=== PATIENT | female | born 1945 | race African-American/Black ===

== ENCOUNTER 2018-05-27 10:20 | Inpatient (IN) | payer MEDICARE ==
--- NOTE | 2018-05-27 10:52 | ER Document Report ---
ED Medical Screen (RME) - General Chief Complaint: General Weakness Stated Complaint: BODY WEAKNESS Time Seen by Provider: 05/27/18 10:45 Notes: RAPID MEDICAL EVALUATION DISCLOSURE I have seen this patient as part of a Rapid Medical Evaluation and, if applicable, placed any initially appropriate orders. The patient will be seen and fully evaluated, including a full history and physical exam, by a provider ( in Main ED or Fast Track) when a room becomes available. 72-year-old female brought here by family who states she has been acting tired and dehydrated over the past few days. She is also had some diarrhea over the past few days. She has a history of diabetes and they report she has been drinking a lot of Pepsi. She has a history of this similar presentation and they stated that she normally perks up after getting some IV fluids. EXAM Slightly somnolent CTAB RRR TRAVEL OUTSIDE OF THE [place] IN LAST 30 DAYS: No - Related Data Allergies/Adverse Reactions: No Known Allergies Allergy (Unverified 08/07/11 13:04) Past Medical History - Past Medical History Cardiac Medical History: Reports: Hx Hypertension Denies: Hx Heart Attack Pulmonary Medical History: Denies: Hx Asthma Neurological Medical History: Denies: Hx Cerebrovascular Accident, Hx Seizures GI Medical History: Denies: Hx Hepatitis, Hx Hiatal Hernia, Hx Ulcer Infectious Medical History: Denies: Hx Hepatitis Past Surgical History: Denies: Hx Mastectomy, Hx Open Heart Surgery, Hx Pacemaker Physical Exam - Vital signs Vitals: Temp Pulse Resp BP Pulse Ox 98.5 F 92 16 119/54 L 97 05/27/18 10:37 05/27/18 10:37 05/27/18 10:37 05/27/18 10:37 05/27/18 10:37 Course - Vital Signs Vital signs: Temp Pulse Resp BP Pulse Ox 98.5 F 92 16 119/54 L 97 05/27/18 10:37 05/27/18 10:37 05/27/18 10:37 05/27/18 10:37 05/27/18 10:37 Doctor's Discharge - Discharge Referrals: ADRIAN BLAKE MD [Primary Care Provider] - Follow up as needed
[2018-05-27 11:44] LABS: HEMATOCRIT 25.1 % (36.0-47.0); MEAN CORPUSCULAR HGB CONC 30.7 g/dL (32.0-36.0); MEAN CORPUSCULAR VOLUME 75 fl (80-97); PLATELET COUNT 179 10^3/uL (150-450); RED BLOOD COUNT 3.34 10^6/uL (3.72-5.28); RED CELL DISTRIBUTION WIDTH 19.8 % (11.5-14.0); WHITE BLOOD COUNT 16.2 10^3/uL (4.0-10.5)
[2018-05-27] MEDS ORDERED: NORMAL SALINE 1000 ML 1,000 ML IV ONE (12:19)
[2018-05-27 12:21] LABS: HEMOGLOBIN 7.7 g/dL (12.0-15.5)
[2018-05-27 12:22] LABS: ALANINE AMINOTRANSFERASE 14 U/L (9-52); ALBUMIN 3.5 g/dL (3.5-5.0); ALKALINE PHOSPHATASE 59 U/L (38-126); ANION GAP 15 (5-19); ASPARTATE AMINO TRANSFERASE 19 U/L (14-36); BILIRUBIN,DIRECT 0.3 mg/dL (0.0-0.4); BILIRUBIN,TOTAL 0.4 mg/dL (0.2-1.3); BLOOD UREA NITROGEN 36 mg/dL (7-20); CALCIUM 10.2 mg/dL (8.4-10.2); CARBON DIOXIDE 13 mmol/L (22-30); CHLORIDE 113 mmol/L (98-107); GLUCOSE 152 mg/dL (75-110); LIPASE 28.2 U/L (23-300); POTASSIUM 5.9 mmol/L (3.6-5.0); SODIUM 140.7 mmol/L (137-145); TOTAL PROTEIN 6.7 g/dL (6.3-8.2)
--- NOTE | 2018-05-27 12:22 | ER Document Report ---
ED General - General Chief Complaint: General Weakness Stated Complaint: BODY WEAKNESS Time Seen by Provider: 05/27/18 10:45 Notes: Patient is brought to the emergency department by her family because they are concerned she is dehydrated. They say that her skin feels dry. She has had diarrhea for the past 2 days. She has been eating and drinking poorly. She is making some urine. Has not been noted to have any fever. She is not nauseated or vomiting. The diarrhea has not had any blood in it. It has soft stools, not watery. She has had shortness of breath with any exertion. No urinary tract symptoms or blood in urine noted. Patient has a history of mild dementia, hypertension, and NIDDM. TRAVEL OUTSIDE OF THE [place] IN LAST 30 DAYS: No - Related Data Allergies/Adverse Reactions: No Known Allergies Allergy (Unverified 05/27/18 15:15) Past Medical History - Social History Smoking Status: Never Smoker Family History: Reviewed & Not Pertinent Patient has suicidal ideation: No Patient has homicidal ideation: No - Past Medical History Cardiac Medical History: Reports: Hx Hypertension Neurological Medical History: Reports: Other - Dementia Endocrine Medical History: Reports: Hx Diabetes Mellitus Type 2 Past Surgical History: Reports: Hx Orthopedic Surgery Review of Systems - Review of Systems Notes: Family provides some information for review of systems. Patient is unable to provide any useful information. REVIEW OF SYSTEMS: CONSTITUTIONAL : Denies fever. EENT: Denies eye, ear, nose or mouth or throat pain or other symptoms. CARDIOVASCULAR: Denies chest pain. RESPIRATORY: Denies cough, chest congestion, but some shortness of breath. GASTROINTESTINAL: Denies abdominal pain or nausea, vomiting, but has diarrhea for the past 2 days. GENITOURINARY: Denies difficulty or painful urinating, urinary frequency, blood in urine. MUSCULOSKELETAL: Denies back or neck pain. Denies joint pain or swelling. SKIN: Denies rash or skin lesions. NEUROLOGICAL: Denies LOC or altered mental status from her normal. Denies headache. Denies sensory loss or motor deficits. ALL OTHER SYSTEMS REVIEWED AND NEGATIVE. -: Yes ROS unobtainable due to patient's medical condition Physical Exam - Vital signs Vitals: Temp Pulse Resp BP Pulse Ox 98.5 F 92 16 119/54 L 97 05/27/18 10:37 05/27/18 10:37 05/27/18 10:37 05/27/18 10:37 05/27/18 10:37 Interpretation: Normal Notes: PHYSICAL EXAMINATION: GENERAL: Well-appearing, in no acute distress. I will signs are all normal. Patient does not answer questions appropriately and seems to be significantly demented. HEAD: Atraumatic, normocephalic. EYES: Pupils equal round and reactive to light, extraocular movements intact. ENT: oropharynx clear without exudates. Moist mucous membranes. NECK: Normal range of motion, supple. LUNGS: Breath sounds clear and equal bilaterally. HEART: Regular rate and rhythm without murmurs. ABDOMEN: Soft, nontender. No guarding or rebound. No masses. BACK: No tenderness throughout entire back. EXTREMITIES: Normal range of motion without pain. NEUROLOGICAL: Normal speech for her. Gait not tested. Normally does not walk without assistance. Normal sensory, motor, and reflex exams grossly. Awake, alert, but not oriented. PSYCH: Normal mood, normal affect. SKIN: Warm, dry, no rashes. Course - Re-evaluation Re-evalutation: 05/27/18 14:22 Patient was started on IV fluids and then a gram of Rocephin IV as her labs returned and apparent UTI, likely sepsis. Spoke with Dr. Howell, patient's primary care provider, and he will admit her for further care. - Vital Signs Vital signs: Temp Pulse Resp BP Pulse Ox 98.2 F 99 16 133/59 H 100 05/27/18 15:46 05/27/18 15:47 05/27/18 15:46 05/27/18 15:46 05/27/18 15:46 - Laboratory Result Diagrams: 05/27/18 11:22 05/27/18 16:24 Laboratory results interpreted by me: 05/27/18 05/27/18 05/27/18 11:21 11:22 11:22 WBC 16.2 H RBC 3.34 L Hgb 7.7 L Hct 25.1 L MCV 75 L MCH 23.0 L MCHC 30.7 L RDW 19.8 H Seg Neuts % (Manual) 86 H Lymphocytes % (Manual) 5 L Abs Neuts (Manual) 14.7 H Potassium 5.9 H Chloride 113 H Carbon Dioxide 13 L BUN 36 H Creatinine 2.30 H Est GFR ( Amer) 25 L Est GFR (Non-Af Amer) 21 L Glucose 152 H POC Glucose 158 H Magnesium 1.3 L Urine Protein Urine Blood Ur Leukocyte Esterase 05/27/18 13:03 WBC RBC Hgb Hct MCV MCH MCHC RDW Seg Neuts % (Manual) Lymphocytes % (Manual) Abs Neuts (Manual) Potassium Chloride Carbon Dioxide BUN Creatinine Est GFR ( Amer) Est GFR (Non-Af Amer) Glucose POC Glucose Magnesium Urine Protein 100 H Urine Blood LARGE H Ur Leukocyte Esterase LARGE H - Diagnostic Test Radiology results interpreted by me: 05/27/18 14:22 Chest x-ray is normal. - EKG Interpretation by Me EKG shows normal: Sinus rhythm Rate: Normal Rhythm: NSR Additional EKG results interpreted by me: 05/27/18 14:23 EKG is normal. Critical Care Note - Critical Care Note Total time excluding time spent on procedures (mins): 40 Discharge - Discharge Clinical Impression: UTI (urinary tract infection), Sepsis, Dehydration, Renal insufficiency Condition: Poor Disposition: ADMITTED INPATIENT Admitting Provider: [facility] Unit Admitted: Telemetry
[2018-05-27 12:23] LABS: ABSOLUTE LYMPHOCYTES# (MANUAL) 0.8 10^3/uL (0.5-4.7); ABSOLUTE MONOCYTES # (MANUAL) 0.6 10^3/uL (0.1-1.4); ABSOLUTE NEUTROPHILS# (MANUAL) 14.7 10^3/uL (1.7-8.2); BAND NEUTROPHILS % (MANUAL) 5 % (3-5); BASOPHILS % (MANUAL) 0 % (0-2); EOSINOPHILS % (MANUAL) 0 % (0-6); LYMPHOCYTES % (MANUAL) 5 % (13-45); MONOCYTES % (MANUAL) 4 % (3-13); SEGMENTED NEUTROPHILS % (MAN) 86 % (42-78); TOTAL CELLS COUNTED 100
[2018-05-27 12:24] LABS: ANISOCYTOSIS 2+; HYPOCHROMASIA SLIGHT; TOXIC VACUOLATION PRESENT
[2018-05-27 12:25] LABS: BURR CELLS 1+; OVALOCYTES 1+; PLATELET COMMENT ADEQUATE; POIKILOCYTOSIS 2+; SCHISTOCYTES 1+; TEAR DROP CELLS SLIGHT
--- NOTE | 2018-05-27 13:02 | RADIOLOGY REPORT (SQ) ---
EXAM DESCRIPTION: CHEST 2 VIEWS COMPLETED DATE/TIME: 05/27/2018 12:48 pm REASON FOR STUDY: Shortness of breath COMPARISON: CT angio chest 07/31/2012 Two-view chest 08/07/2011 EXAM PARAMETERS: NUMBER OF VIEWS: two views TECHNIQUE: Digital Frontal and Lateral radiographic views of the chest acquired. RADIATION DOSE: NA LIMITATIONS: none FINDINGS: LUNGS AND PLEURA: No opacities, masses or pneumothorax. No pleural effusion. MEDIASTINUM AND HILAR STRUCTURES: No masses or contour abnormalities. HEART AND VASCULAR STRUCTURES: Heart normal size. No evidence for failure. BONES: No acute findings. HARDWARE: None in the chest. OTHER: No other significant finding. IMPRESSION: NO ACUTE RADIOGRAPHIC FINDING IN THE CHEST. TECHNICAL DOCUMENTATION: JOB ID: [id number] [employer]- All Rights Reserved Reading location - IP/workstation name: [email or web address]
[2018-05-27 13:33] LABS: AMORPHOUS SEDIMENT,URINE TRACE /HPF; APPEARANCE,URINE TURBID; BILIRUBIN,URINE NEGATIVE (NEGATIVE); COLOR,URINE YELLOW; GLUCOSE, URINE NEGATIVE (NEGATIVE); KETONES,URINE NEGATIVE (NEGATIVE); LEUKOCYTE ESTERASE,URINE LARGE (NEGATIVE); NITRITE,URINE NEGATIVE (NEGATIVE); PROTEIN,URINE 100 mg/dL (NEGATIVE); URINE SPECIFIC GRAVITY 1.015; UROBILINOGEN,URINE NEGATIVE mg/dL (<2.0)
[2018-05-27] MEDS ORDERED: CEFTRIAXONE INJ 1000 MG VIAL IV ONE (14:09)
[2018-05-27] MEDS ORDERED: NORMAL SALINE 1000 ML 1,000 ML IV PRN ×3 (15:23→18:30)
[2018-05-27] MEDS ORDERED: GLUCAGON,HUMAN RECOMB 1 MG INJ IM PRN ×2 (15:26→20:00)
[2018-05-27] MEDS ORDERED: DEXTROSE 40% GEL 15 GM TUBE PO PRN ×4 (15:26→20:00)
[2018-05-27] MEDS ORDERED: DEXTROSE 50%-WATER 25 GM/50 ML DISP.SYRIN IV PRN ×4 (15:26→20:00)
[2018-05-27] MEDS ORDERED: INSULIN LISPRO 100 UNIT/ML 3 ML VIAL SUBCUT PRN (15:26)
[2018-05-27 15:54] LABS: FREE T4 (FREE THYROXINE) 2.07 ng/dL (0.78-2.19)
[2018-05-27 16:07] LABS: THYROID STIMULATING HORMONE 3.72 uIU/mL (0.47-4.68)
[2018-05-27 16:45] LABS: ABSOLUTE RETICS # 0.041 10^6/uL (0.028-0.122); RETICULOCYTE COUNT (AUTO) 1.29 % (0.66-2.85)
[2018-05-27 17:05] LABS: ALANINE AMINOTRANSFERASE 12 U/L (9-52); ALBUMIN 3.3 g/dL (3.5-5.0); ALKALINE PHOSPHATASE 61 U/L (38-126); ANION GAP 18 (5-19); ASPARTATE AMINO TRANSFERASE 19 U/L (14-36); BILIRUBIN,DIRECT 0.2 mg/dL (0.0-0.4); BILIRUBIN,TOTAL 0.2 mg/dL (0.2-1.3); BLOOD UREA NITROGEN 38 mg/dL (7-20); CALCIUM 9.9 mg/dL (8.4-10.2); CARBON DIOXIDE 11 mmol/L (22-30); CHLORIDE 113 mmol/L (98-107); GLUCOSE 129 mg/dL (75-110); POTASSIUM 5.9 mmol/L (3.6-5.0); SODIUM 142.4 mmol/L (137-145); TOTAL PROTEIN 6.8 g/dL (6.3-8.2)
[2018-05-27 18:21] LABS: FOLATE 6.54 ng/mL (>2.76)
[2018-05-27 18:25] LABS: IRON(TIBC) < 10.1 ug/dL (37-170)
[2018-05-27] MEDS ORDERED: DEXTROSE 50%-WATER 25 GM/50 ML DISP.SYRIN IV ONE (19:59)
[2018-05-27] MEDS ORDERED: IRON SUCROSE COMPLEX INJ/PF 100 MG/5 ML SDV IV ONE ×3 (20:02→21:30)
--- NOTE | 2018-05-27 20:09 | RADIOLOGY REPORT (SQ) ---
EXAM DESCRIPTION: U/S RETROPERITON LTD COMPLETED DATE/TIME: 05/27/2018 7:54 pm REASON FOR STUDY: ACUTE KIDNEY INJURY COMPARISON: None. TECHNIQUE: Dynamic and static grayscale images acquired of the kidneys and bladder and recorded on P ACS. Additional selected color Doppler and spectral images recorded. LIMITATIONS: Limited visualization left kidney. Bladder decompressed by Fajardo catheter and therefor e not evaluated. FINDINGS: RIGHT KIDNEY: Normal size. Normal echogenicity. No solid or suspicious masses. No hydronep hrosis. No calcifications. LEFT KIDNEY: Small relative to the right at 7.3 cm. No gross mass or hydronephrosis allowing for li mited visualization. BLADDER: Decompressed by a Fajardo catheter. OTHER FINDINGS: No other significant finding. IMPRESSION: 1. Normal right kidney. 2. Left kidney looks slightly small, suboptimally evaluated. 3 . No hydronephrosis or gross mass. 4. Bladder decompressed by Fajardo catheter. TECHNICAL DOCUMENTATION: JOB ID: [id number] [employer]- All Rights Reserved Reading location - IP/workstation name: [email or web address]
--- NOTE | 2018-05-27 20:14 | PDOC H&P ---
History of Present Illness Admission Date/PCP: 05/27/18 14:38 ADRIAN BLAKE MD History of Present Illness: MILI SUAREZ is a 72 year old female,She was brought to the emergency room by family for evaluation of altered mental status, patient is well-known to me she is extremely noncompliant with office visits, she has type 2 diabetes mellitus, with underlying dementia, arthropathy of both knees the left more than the right, in the emergency room she was evaluated, she was found to be septic, the white blood cell was 16,000 there was associated acute kidney injury with hyperkalemia, severe anemia, iron deficiency type. Patient was referred multiple times for screening colonoscopy but she never kept the appointment, she will need colonoscopy for evaluation of this severe iron deficiency anemia.The source of the sepsis is the urine, the urine is grossly abnormal with precipitation,large junky precipitates. History taking was a challenge, she was altered mental status, stuporous though arousable. Family also stated that she was short of breath most likely from the anemia, the chest x-ray did not show any acute infiltrate to suggest pneumonia.Patient's condition is critical.She will be admitted to a telemetry bed for close monitoring Past Medical History Cardiac Medical History: Reports: Hypertension Neurological Medical History: Reports: Other - Dementia Endocrine Medical History: Reports: Diabetes Mellitus Type 2 Musculoskeltal Medical History: Reports: Arthritis Psychiatric Medical History: Reports: Dementia Past Surgical History Past Surgical History: Reports: Orthopedic Surgery Social History Smoking Status: Never Smoker Frequency of Alcohol Use: None Hx Recreational Drug Use: No Drugs: None Hx Prescription Drug Abuse: No - Advance Directive Resuscitation Status: Full Code Family History Family History: Reviewed & Not Pertinent Parental Family History Reviewed: Yes Children Family History Reviewed: Yes Sibling(s) Family History Reviewed.: Yes Medication/Allergy Home Medications: Carvedilol [Coreg] 25 mg PO BID 09/21/11 Metformin HCl [Glucophage] 1,000 mg PO BID 09/21/11 Donepezil HCl [Aricept] 10 mg PO QHS 05/27/18 Ferrous Sulfate 325 mg PO DAILY 05/27/18 Multivit-Min/Iron/Folic/[id number] [Hair, Skin and Nails Tablet] 1 each PO DAILY Oxycodone HCl 15 mg PO Q4HP PRN 05/27/18 Prevagen 1 tab PO DAILY 05/27/18 Allergies/Adverse Reactions: No Known Allergies Allergy (Unverified 05/27/18 15:15) Review of Systems ROS unobtainable: Due to mental status Physical Exam Vital Signs: Temp Pulse Resp BP Pulse Ox 98.2 F 99 16 133/59 H 100 05/27/18 15:46 05/27/18 15:47 05/27/18 15:46 05/27/18 15:46 05/27/18 15:46 General appearance: PRESENT: other - Elderly female, stuporous Head exam: PRESENT: atraumatic, normocephalic Eye exam: PRESENT: PERRLA Mouth exam: PRESENT: dry mucosa Neck exam: PRESENT: full ROM Respiratory exam: PRESENT: clear to auscultation dionte Cardiovascular exam: PRESENT: RRR, +S1, +S2 Pulses: PRESENT: normal dorsalis pedis pul, +2 pedal pulses bilateral Vascular exam: PRESENT: normal capillary refill GI/Abdominal exam: PRESENT: normal bowel sounds, soft Rectal exam: PRESENT: deferred Neurological exam: PRESENT: altered Skin exam: PRESENT: dry Results Laboratory Results: 05/27/18 16:24 05/27/18 05/27/18 16:24 16:24 Retic Count (auto) 1.29 Absolute Retic 0.041 Sodium 142.4 Potassium 5.9 H Chloride 113 H Carbon Dioxide 11 L Anion Gap 18 BUN 38 H Creatinine 2.21 H Est GFR ( Amer) 26 L Est GFR (Non-Af Amer) 22 L Glucose 129 H Calcium 9.9 Iron < 10.1 L TIBC 301 % Saturation UNABLE TO CALCULATE Ferritin 38.80 Total Bilirubin 0.2 AST 19 ALT 12 Alkaline Phosphatase 61 Total Protein 6.8 Albumin 3.3 L Vitamin B12 578.0 Folate 6.54 Impressions: Chest X-Ray 05/27/18 12:19 IMPRESSION: NO ACUTE RADIOGRAPHIC FINDING IN THE CHEST. Assessment & Plan - Diagnosis (1) Sepsis Qualifiers: Sepsis type: sepsis due to unspecified organism Qualified Code(s): A41.9 - Sepsis, unspecified organism Is this a current diagnosis for this admission?: Yes Plan: Patient met sepsis criteria with multiple organ dysfunction including encephalopathy, acute kidney injury with hyperkalemia, she will be vigorously hydrated with normal saline at 30 min/kg body weight for 24 hours (2) Acute kidney injury Is this a current diagnosis for this admission?: Yes Plan: This is most likely related to sepsis, kidney ultrasound will be requested to rule out post renal etiology. She will be vigorously hydrated to restore kidney function (3) Hyperkalemia Is this a current diagnosis for this admission?: Yes Plan: She has hyperkalemia most likely is secondary to acute kidney failure or intracellular shift, calcium gluconate, 50% dextrose with insulin is administered (4) UTI (urinary tract infection) Qualifiers: Urinary tract infection type: acute cystitis Hematuria presence: without hematuria Qualified Code(s): N30.00 - Acute cystitis without hematuria Is this a current diagnosis for this admission?: Yes
[2018-05-27] MEDS ORDERED: CALCIUM GLUCONATE 1000 MG/10 ML INJ IV ONE (20:30)
[2018-05-27] MEDS: ACETAMINOPHEN 325 MG TABLET PO PRN (20:34)
[2018-05-27] MEDS ORDERED: INSULIN REG, HUMAN 100 UNIT/ML 3 ML VIAL (PYX) IV ONE (21:30)
--- NOTE | 2018-05-27 22:06 | EKG REPORT ---
SEVERITY:- NORMAL ECG - SINUS RHYTHM : Confirmed by: Gaviota Christian 27-May-2018 22:05:18
[2018-05-27] MEDS: HEPARIN SOD (PORCINE) 5,000 UNIT/ML 1 ML SYRINGE SUBCUT SCH (22:17)
[2018-05-27] MEDS: NORMAL SALINE 1000 ML 1,000 ML IV PRN (23:02)
[2018-05-27 23:07] LABS: ALANINE AMINOTRANSFERASE 15 U/L (9-52); ALBUMIN 2.8 g/dL (3.5-5.0); ALKALINE PHOSPHATASE 50 U/L (38-126); ANION GAP 14 (5-19); ASPARTATE AMINO TRANSFERASE 22 U/L (14-36); BILIRUBIN,DIRECT 0.3 mg/dL (0.0-0.4); BILIRUBIN,TOTAL 0.3 mg/dL (0.2-1.3); BLOOD UREA NITROGEN 40 mg/dL (7-20); CALCIUM 9.5 mg/dL (8.4-10.2); CARBON DIOXIDE 11 mmol/L (22-30); CHLORIDE 114 mmol/L (98-107); GLUCOSE 259 mg/dL (75-110); SODIUM 138.6 mmol/L (137-145); TOTAL PROTEIN 5.7 g/dL (6.3-8.2)
[2018-05-27 23:16] LABS: POTASSIUM 4.5 mmol/L (3.6-5.0)
[2018-05-28] MEDS: HEPARIN SOD (PORCINE) 5,000 UNIT/ML 1 ML SYRINGE SUBCUT SCH ×3 (03:03→21:48)
[2018-05-28] MEDS ORDERED: FUROSEMIDE INJ/PF 20 MG/2 ML SDV IV ONE (04:45)
[2018-05-28] MEDS: IPRATROPIUM/ALBUTEROL 0.5-2.5 MG/3 ML AMPUL NEB PRN ×2 (06:39→21:03)
[2018-05-28 07:04] LABS: HEMATOCRIT 21.7 % (36.0-47.0); MEAN CORPUSCULAR HEMOGLOBIN 23.6 pg (27.0-33.4); MEAN CORPUSCULAR HGB CONC 32.2 g/dL (32.0-36.0); MEAN CORPUSCULAR VOLUME 73 fl (80-97); PLATELET COUNT 154 10^3/uL (150-450); RED BLOOD COUNT 2.97 10^6/uL (3.72-5.28); RED CELL DISTRIBUTION WIDTH 19.5 % (11.5-14.0); WHITE BLOOD COUNT 15.5 10^3/uL (4.0-10.5)
[2018-05-28 07:17] LABS: ALANINE AMINOTRANSFERASE 16 U/L (9-52); ALBUMIN 2.9 g/dL (3.5-5.0); ALKALINE PHOSPHATASE 56 U/L (38-126); ANION GAP 16 (5-19); ASPARTATE AMINO TRANSFERASE 21 U/L (14-36); BILIRUBIN,DIRECT 0.3 mg/dL (0.0-0.4); BILIRUBIN,TOTAL 0.3 mg/dL (0.2-1.3); BLOOD UREA NITROGEN 42 mg/dL (7-20); CALCIUM 9.5 mg/dL (8.4-10.2); CARBON DIOXIDE 12 mmol/L (22-30); CHLORIDE 116 mmol/L (98-107); GLUCOSE 101 mg/dL (75-110); SODIUM 143.7 mmol/L (137-145); TRIGLYCERIDES 88 mg/dL (<150)
[2018-05-28 07:32] LABS: DIRECT LDL < 30 mg/dL (<100)
[2018-05-28 08:17] LABS: ABSOLUTE LYMPHOCYTES# (MANUAL) 0.2 10^3/uL (0.5-4.7); ABSOLUTE MONOCYTES # (MANUAL) 0.8 10^3/uL (0.1-1.4); ABSOLUTE NEUTROPHILS# (MANUAL) 14.4 10^3/uL (1.7-8.2); ANISOCYTOSIS 2+; BAND NEUTROPHILS % (MANUAL) 6 % (3-5); BASOPHILS % (MANUAL) 0 % (0-2); BURR CELLS 2+; EOSINOPHILS % (MANUAL) 1 % (0-6); HYPOCHROMASIA 1+; LYMPHOCYTES % (MANUAL) 1 % (13-45); MONOCYTES % (MANUAL) 5 % (3-13); OVALOCYTES SLIGHT; PLATELET COMMENT ADEQUATE; POIKILOCYTOSIS 2+; POLYCHROMASIA SLIGHT; SCHISTOCYTES SLIGHT; SEGMENTED NEUTROPHILS % (MAN) 87 % (42-78); TOTAL CELLS COUNTED 100; TOXIC GRANULATION 1+; TOXIC VACUOLATION PRESENT
[2018-05-28 09:35] LABS: UR PRO/CREAT RATIO RESULT 0.4 mg/mg (0.0-0.2); URINE CREATININE 258.9 mg/dL (15-278); URINE PROTEIN 94.8 mg/dL (<12)
[2018-05-28] MEDS ORDERED: ERTAPENEM SODIUM 1 GM in NORMAL SALINE 50 ML IV SCH (10:00)
[2018-05-28] MEDS ORDERED: CEFTRIAXONE SODIUM 1,000 MG in DEXTROSE 5%-WATER 50 ML IV SCH (10:00)
[2018-05-28] MEDS ORDERED: CEFTRIAXONE 1 GM/D5W RTU 1 GM/50 ML RTUPB IV SCH (10:00)
[2018-05-28] MEDS: ERTAPENEM SODIUM 0.5 GM in NORMAL SALINE 50 ML IV SCH (11:12)
--- NOTE | 2018-05-28 15:06 | PDOC PROGRESS REPORT ---
Subjective Progress Note for:: 05/28/18 Subjective:: Patient was seen by the bedside, she was admitted yesterday when she presented with sepsis, the blood culture, urine culture is growing gram-negative rods. She is more alert today more engaging, last night she developed shortness of breath due to too much volume/fluid the infusion rate was reduced to 70 cc/h and she had a bolus of furosemide intravenously. The antibiotic was changed to ertapenem from Rocephin Reason For Visit: SEPSIS,UTI Physical Exam Vital Signs: Temp Pulse Resp BP Pulse Ox 98.6 F 96 16 131/62 H 98 05/28/18 07:23 05/28/18 08:25 05/28/18 08:25 05/28/18 07:23 05/28/18 07:23 Intake & Output 05/27/18 05/28/18 05/29/18 06:59 06:59 06:59 Intake Total 2400 Output Total 300 Balance 2100 Weight 79.3 kg 79.3 kg General appearance: PRESENT: no acute distress Eye exam: PRESENT: PERRLA Respiratory exam: PRESENT: clear to auscultation dionte Cardiovascular exam: PRESENT: +S1, +S2 GI/Abdominal exam: PRESENT: soft Neurological exam: PRESENT: alert Results Laboratory Results: 05/28/18 05:57 05/28/18 05:57 05/27/18 05/27/18 05/27/18 16:24 16:24 22:50 WBC RBC Hgb Hct MCV MCH MCHC RDW Plt Count Seg Neutrophils % Lymphocytes % Monocytes % Eosinophils % Basophils % Absolute Neutrophils Absolute Lymphocytes Absolute Monocytes Absolute Eosinophils Absolute Basophils Retic Count (auto) 1.29 Absolute Retic 0.041 Sodium 142.4 138.6 Potassium 5.9 H 4.5 D Chloride 113 H 114 H Carbon Dioxide 11 L 11 L Anion Gap 18 14 BUN 38 H 40 H Creatinine 2.21 H 2.23 H Est GFR ( Amer) 26 L 26 L Est GFR (Non-Af Amer) 22 L 21 L Glucose 129 H 259 H Calcium 9.9 9.5 Iron < 10.1 L TIBC 301 % Saturation UNABLE TO CALCULATE Ferritin 38.80 Total Bilirubin 0.2 0.3 AST 19 22 ALT 12 15 Alkaline Phosphatase 61 50 Total Protein 6.8 5.7 L Albumin 3.3 L 2.8 L Triglycerides Cholesterol LDL Cholesterol Direct VLDL Cholesterol HDL Cholesterol Vitamin B12 578.0 Folate 6.54 05/28/18 05/28/18 05:57 05:57 WBC 15.5 H RBC 2.97 L Hgb 7.0 L Hct 21.7 L MCV 73 L MCH 23.6 L MCHC 32.2 RDW 19.5 H Plt Count 154 Seg Neutrophils % Not Reportable Lymphocytes % Not Reportable Monocytes % Not Reportable Eosinophils % Not Reportable Basophils % Not Reportable Absolute Neutrophils Not Reportable Absolute Lymphocytes Not Reportable Absolute Monocytes Not Reportable Absolute Eosinophils Not Reportable Absolute Basophils Not Reportable Retic Count (auto) Absolute Retic Sodium 143.7 Potassium 5.0 Chloride 116 H Carbon Dioxide 12 L Anion Gap 16 BUN 42 H Creatinine 2.35 H Est GFR ( Amer) 24 L Est GFR (Non-Af Amer) 20 L Glucose 101 Calcium 9.5 Iron TIBC % Saturation Ferritin Total Bilirubin 0.3 AST 21 ALT 16 Alkaline Phosphatase 56 Total Protein 6.0 L Albumin 2.9 L Triglycerides 88 Cholesterol 75.80 LDL Cholesterol Direct < 30 VLDL Cholesterol 18.0 HDL Cholesterol 24 L Vitamin B12 Folate Impressions: Renal Ultrasound 05/27/18 00:00 IMPRESSION: 1. Normal right kidney. 2. Left kidney looks slightly small, suboptimally evaluated. 3. No hydronephrosis or gross mass. 4. Bladder decompressed by Fajardo catheter. Chest X-Ray 05/27/18 12:19 IMPRESSION: NO ACUTE RADIOGRAPHIC FINDING IN THE CHEST. Assessment & Plan - Diagnosis (1) Sepsis Qualifiers: Sepsis type: sepsis due to unspecified organism Qualified Code(s): A41.9 - Sepsis, unspecified organism Is this a current diagnosis for this admission?: Yes (2) Acute kidney injury Is this a current diagnosis for this admission?: Yes (3) Hyperkalemia Is this a current diagnosis for this admission?: Yes (4) UTI (urinary tract infection) Qualifiers: Urinary tract infection type: acute cystitis Hematuria presence: without hematuria Qualified Code(s): N30.00 - Acute cystitis without hematuria Is this a current diagnosis for this admission?: Yes - Plan Summary Plan Summary: Continue IV antibiotic with ertapenem, the hyperkalemia is resolved with treatment, kidney function is improved, kidney ultrasound did not show any hydronephrosis. Patient continues to make progress
--- NOTE | 2018-05-28 15:11 | PDOC PROGRESS REPORT ---
Subjective Progress Note for:: 05/28/18 Reason For Visit: SEPSIS,UTI Physical Exam Vital Signs: Temp Pulse Resp BP Pulse Ox 98.6 F 96 16 131/62 H 98 05/28/18 07:23 05/28/18 08:25 05/28/18 08:25 05/28/18 07:23 05/28/18 07:23 Intake & Output 05/27/18 05/28/18 05/29/18 06:59 06:59 06:59 Intake Total 2400 Output Total 300 Balance 2100 Weight 79.3 kg 79.3 kg Results Laboratory Results: 05/28/18 05:57 05/28/18 05:57 05/27/18 05/27/18 05/27/18 16:24 16:24 22:50 WBC RBC Hgb Hct MCV MCH MCHC RDW Plt Count Seg Neutrophils % Lymphocytes % Monocytes % Eosinophils % Basophils % Absolute Neutrophils Absolute Lymphocytes Absolute Monocytes Absolute Eosinophils Absolute Basophils Retic Count (auto) 1.29 Absolute Retic 0.041 Sodium 142.4 138.6 Potassium 5.9 H 4.5 D Chloride 113 H 114 H Carbon Dioxide 11 L 11 L Anion Gap 18 14 BUN 38 H 40 H Creatinine 2.21 H 2.23 H Est GFR ( Amer) 26 L 26 L Est GFR (Non-Af Amer) 22 L 21 L Glucose 129 H 259 H Calcium 9.9 9.5 Iron < 10.1 L TIBC 301 % Saturation UNABLE TO CALCULATE Ferritin 38.80 Total Bilirubin 0.2 0.3 AST 19 22 ALT 12 15 Alkaline Phosphatase 61 50 Total Protein 6.8 5.7 L Albumin 3.3 L 2.8 L Triglycerides Cholesterol LDL Cholesterol Direct VLDL Cholesterol HDL Cholesterol Vitamin B12 578.0 Folate 6.54 05/28/18 05/28/18 05:57 05:57 WBC 15.5 H RBC 2.97 L Hgb 7.0 L Hct 21.7 L MCV 73 L MCH 23.6 L MCHC 32.2 RDW 19.5 H Plt Count 154 Seg Neutrophils % Not Reportable Lymphocytes % Not Reportable Monocytes % Not Reportable Eosinophils % Not Reportable Basophils % Not Reportable Absolute Neutrophils Not Reportable Absolute Lymphocytes Not Reportable Absolute Monocytes Not Reportable Absolute Eosinophils Not Reportable Absolute Basophils Not Reportable Retic Count (auto) Absolute Retic Sodium 143.7 Potassium 5.0 Chloride 116 H Carbon Dioxide 12 L Anion Gap 16 BUN 42 H Creatinine 2.35 H Est GFR ( Amer) 24 L Est GFR (Non-Af Amer) 20 L Glucose 101 Calcium 9.5 Iron TIBC % Saturation Ferritin Total Bilirubin 0.3 AST 21 ALT 16 Alkaline Phosphatase 56 Total Protein 6.0 L Albumin 2.9 L Triglycerides 88 Cholesterol 75.80 LDL Cholesterol Direct < 30 VLDL Cholesterol 18.0 HDL Cholesterol 24 L Vitamin B12 Folate Impressions: Renal Ultrasound 05/27/18 00:00 IMPRESSION: 1. Normal right kidney. 2. Left kidney looks slightly small, suboptimally evaluated. 3. No hydronephrosis or gross mass. 4. Bladder decompressed by Fajardo catheter. Chest X-Ray 05/27/18 12:19 IMPRESSION: NO ACUTE RADIOGRAPHIC FINDING IN THE CHEST. Assessment & Plan - Diagnosis (1) Sepsis Qualifiers: Sepsis type: sepsis due to unspecified organism Qualified Code(s): A41.9 - Sepsis, unspecified organism Is this a current diagnosis for this admission?: Yes (2) Acute kidney injury Is this a current diagnosis for this admission?: Yes (3) Hyperkalemia Is this a current diagnosis for this admission?: Yes (4) UTI (urinary tract infection) Qualifiers: Urinary tract infection type: acute cystitis Hematuria presence: without hematuria Qualified Code(s): N30.00 - Acute cystitis without hematuria Is this a current diagnosis for this admission?: Yes (5) Iron deficiency anemia due to chronic blood loss Is this a current diagnosis for this admission?: Yes Plan: She has severe iron deficiency anemia most likely due to chronic blood loss, she was referred to outpatient multiple times for screening colonoscopy she did not get the appointment, she was given IV Venofer yesterday, she may require blood transfusion at one-point, consultation will be requested from GI for colonoscopy
[2018-05-28] MEDS ORDERED: NORMAL SALINE 1000 ML 1,000 ML IV PRN (18:04)
[2018-05-28] MEDS ORDERED: INSULIN REG, HUMAN 100 UNIT/ML 3 ML VIAL (PYX) IV ONE (20:30)
[2018-05-29] MEDS: IPRATROPIUM/ALBUTEROL 0.5-2.5 MG/3 ML AMPUL NEB PRN (05:47)
[2018-05-29] MEDS: HEPARIN SOD (PORCINE) 5,000 UNIT/ML 1 ML SYRINGE SUBCUT SCH ×3 (06:26→23:16)
[2018-05-29 06:38] LABS: HEMATOCRIT 20.1 % (36.0-47.0); MEAN CORPUSCULAR HEMOGLOBIN 22.9 pg (27.0-33.4); MEAN CORPUSCULAR VOLUME 72 fl (80-97); PLATELET COUNT 155 10^3/uL (150-450); RED CELL DISTRIBUTION WIDTH 19.7 % (11.5-14.0); WHITE BLOOD COUNT 12.4 10^3/uL (4.0-10.5)
[2018-05-29 06:53] LABS: ALANINE AMINOTRANSFERASE 22 U/L (9-52); ALBUMIN 2.6 g/dL (3.5-5.0); ALKALINE PHOSPHATASE 58 U/L (38-126); ANION GAP 11 (5-19); ASPARTATE AMINO TRANSFERASE 17 U/L (14-36); BILIRUBIN,DIRECT 0.3 mg/dL (0.0-0.4); BILIRUBIN,TOTAL 0.4 mg/dL (0.2-1.3); BLOOD UREA NITROGEN 43 mg/dL (7-20); CALCIUM 9.3 mg/dL (8.4-10.2); CARBON DIOXIDE 12 mmol/L (22-30); CHLORIDE 118 mmol/L (98-107); GLUCOSE 104 mg/dL (75-110); POTASSIUM 4.3 mmol/L (3.6-5.0); SODIUM 141.3 mmol/L (137-145); TOTAL PROTEIN 5.5 g/dL (6.3-8.2)
[2018-05-29 07:11] LABS: HEMOGLOBIN 6.4 g/dL (12.0-15.5)
[2018-05-29 07:15] LABS: ABSOLUTE LYMPHOCYTES# (MANUAL) 0.1 10^3/uL (0.5-4.7); ABSOLUTE MONOCYTES # (MANUAL) 0.5 10^3/uL (0.1-1.4); ABSOLUTE NEUTROPHILS# (MANUAL) 11.8 10^3/uL (1.7-8.2); BASOPHILS % (MANUAL) 0 % (0-2); EOSINOPHILS % (MANUAL) 0 % (0-6); LYMPHOCYTES % (MANUAL) 1 % (13-45); MONOCYTES % (MANUAL) 4 % (3-13); SEGMENTED NEUTROPHILS % (MAN) 95 % (42-78); TOTAL CELLS COUNTED 100
[2018-05-29 07:16] LABS: ANISOCYTOSIS 2+; BURR CELLS 2+; HYPOCHROMASIA 2+; PLATELET CLUMPS PRESENT; POIKILOCYTOSIS 3+; SCHISTOCYTES 1+; TARGET CELLS SLIGHT; TOXIC GRANULATION SLIGHT
[2018-05-29 07:17] LABS: POLYCHROMASIA SLIGHT
[2018-05-29] MEDS ORDERED: PEG 3350/NA SULF,BICARB,CL/KCL 4000 ML PO ONE (09:30)
[2018-05-29] MEDS: ERTAPENEM SODIUM 0.5 GM in NORMAL SALINE 50 ML IV SCH (11:02)
[2018-05-29] MEDS ORDERED: CEFTRIAXONE 1 GM/D5W RTU 1 GM/50 ML RTUPB IV SCH (13:00)
--- NOTE | 2018-05-29 17:50 | PDOC PROGRESS REPORT ---
Subjective Progress Note for:: 05/29/18 Subjective:: Patient was seen by the bedside, I had a long discussion with patient and family about her condition. She has E. coli septicemia, E. coli UTI, severe iron deficiency anemia, hemoglobin is 6 today, she be transfused with packed red blood cells, she will need colonoscopy before discharge to evaluate iron deficiency anemia. Reason For Visit: SEPSIS,UTI Physical Exam Vital Signs: Temp Pulse Resp BP Pulse Ox 100.2 F 100 18 151/73 H 98 05/29/18 16:17 05/29/18 16:50 05/29/18 16:50 05/29/18 16:17 05/29/18 16:50 Intake & Output 05/28/18 05/29/18 05/30/18 06:59 06:59 06:59 Intake Total 2400 840 823 Output Total 300 580 575 Balance 2100 260 248 Weight 79.3 kg 78.9 kg General appearance: PRESENT: no acute distress Respiratory exam: PRESENT: clear to auscultation dionte Cardiovascular exam: PRESENT: +S1, +S2 GI/Abdominal exam: PRESENT: soft Neurological exam: PRESENT: alert Results Laboratory Results: 05/29/18 06:12 05/29/18 06:12 05/29/18 05/29/18 05/29/18 06:12 06:12 08:04 WBC 12.4 H RBC 2.80 L Hgb 6.4 L Hct 20.1 L MCV 72 L MCH 22.9 L MCHC 32.0 RDW 19.7 H Plt Count 155 Seg Neutrophils % Not Reportable Lymphocytes % Not Reportable Monocytes % Not Reportable Eosinophils % Not Reportable Basophils % Not Reportable Absolute Neutrophils Not Reportable Absolute Lymphocytes Not Reportable Absolute Monocytes Not Reportable Absolute Eosinophils Not Reportable Absolute Basophils Not Reportable Sodium 141.3 Potassium 4.3 Chloride 118 H Carbon Dioxide 12 L Anion Gap 11 BUN 43 H Creatinine 1.92 H Est GFR ( Amer) 31 L Est GFR (Non-Af Amer) 26 L Glucose 104 Calcium 9.3 Total Bilirubin 0.4 AST 17 ALT 22 Alkaline Phosphatase 58 Total Protein 5.5 L Albumin 2.6 L Blood Type A POSITIVE Antibody Screen NEGATIVE Impressions: Renal Ultrasound 05/27/18 00:00 IMPRESSION: 1. Normal right kidney. 2. Left kidney looks slightly small, suboptimally evaluated. 3. No hydronephrosis or gross mass. 4. Bladder decompressed by Fajardo catheter. Chest X-Ray 05/27/18 12:19 IMPRESSION: NO ACUTE RADIOGRAPHIC FINDING IN THE CHEST. Assessment & Plan - Diagnosis (1) Sepsis Qualifiers: Sepsis type: sepsis due to unspecified organism Qualified Code(s): A41.9 - Sepsis, unspecified organism Is this a current diagnosis for this admission?: Yes (2) Acute kidney injury Is this a current diagnosis for this admission?: Yes (3) Hyperkalemia Is this a current diagnosis for this admission?: Yes Plan: Resolved (4) UTI (urinary tract infection) Qualifiers: Urinary tract infection type: acute cystitis Hematuria presence: without hematuria Qualified Code(s): N30.00 - Acute cystitis without hematuria Is this a current diagnosis for this admission?: Yes (5) Iron deficiency anemia due to chronic blood loss Is this a current diagnosis for this admission?: Yes (6) E. coli UTI Is this a current diagnosis for this admission?: Yes (7) E. coli septicemia Is this a current diagnosis for this admission?: Yes Plan: Continue IV antibiotic, with Rocephin (8) Anemia Qualifiers: Anemia type: iron deficiency Iron deficiency anemia type: chronic blood loss Qualified Code(s): D50.0 - Iron deficiency anemia secondary to blood loss (chronic) Is this a current diagnosis for this admission?: Yes Plan: Transfused 2 units of packed red blood cells
[2018-05-29] MEDS ORDERED: FUROSEMIDE 40 MG TABLET PO ONE (19:00)
[2018-05-29] MEDS ORDERED: FUROSEMIDE INJ/PF 40 MG/4 ML SDV IV ONE (19:30)
--- NOTE | 2018-05-29 20:11 | RADIOLOGY REPORT (SQ) ---
EXAM DESCRIPTION: CHEST SINGLE VIEW COMPLETED DATE/TIME: 05/29/2018 7:52 pm REASON FOR STUDY: Wheezing COMPARISON: 05/27/2018 EXAM PARAMETERS: NUMBER OF VIEWS: One view. TECHNIQUE: Single frontal radiographic view of the chest acquired. RADIATION DOSE: NA LIMITATIONS: None. FINDINGS: LUNGS AND PLEURA: Mild subsegmental atelectasis in the left lateral lung base. No pneum othorax. No pleural effusion. MEDIASTINUM AND HILAR STRUCTURES: Stable. HEART AND VASCULAR STRUCTURES: Stable. BONES: No acute findings. HARDWARE: None in the chest. OTHER: No other significant finding. IMPRESSION: Mild subsegmental atelectasis in the left lateral lung base. TECHNICAL DOCUMENTATION: JOB ID: [id number] 2010 [employer]- All Rights Reserved Reading location - IP/workstation name: [employer]
[2018-05-30] MEDS: HEPARIN SOD (PORCINE) 5,000 UNIT/ML 1 ML SYRINGE SUBCUT SCH ×3 (05:59→22:09)
[2018-05-30 06:14] LABS: ABSOLUTE BASOPHILS # (AUTO) 0.1 10^3/uL (0.0-0.2); ABSOLUTE EOSINOPHILS # (AUTO) 0.4 10^3/uL (0.0-0.6); ABSOLUTE LYMPHOCYTES (AUTO) 1.2 10^3/uL (0.5-4.7); ABSOLUTE MONOCYTES (AUTO) 1.8 10^3/uL (0.1-1.4); ABSOLUTE NEUT (AUTO) 7.6 10^3/uL (1.7-8.2); BASOPHILS % (AUTO) 0.5 % (0-2); EOSINOPHILS % (AUTO) 3.6 % (0-6); HEMATOCRIT 26.5 % (36.0-47.0); LYMPHOCYTES % (AUTO) 10.6 % (13-45); MEAN CORPUSCULAR HEMOGLOBIN 25.7 pg (27.0-33.4); MONOCYTES % (AUTO) 16.1 % (3-13); PLATELET COUNT 143 10^3/uL (150-450); RED CELL DISTRIBUTION WIDTH 21.7 % (11.5-14.0); SEGMENTED NEUTROPHILS % (AUTO) 69.2 % (42-78); TOTAL CELLS COUNTED % (AUTO) 100 %
[2018-05-30 06:21] LABS: MEAN CORPUSCULAR VOLUME 76 fl (80-97)
[2018-05-30 06:33] LABS: ALANINE AMINOTRANSFERASE 19 U/L (9-52); ALBUMIN 2.7 g/dL (3.5-5.0); ALKALINE PHOSPHATASE 58 U/L (38-126); ANION GAP 11 (5-19); ASPARTATE AMINO TRANSFERASE 13 U/L (14-36); BILIRUBIN,DIRECT 0.3 mg/dL (0.0-0.4); BILIRUBIN,TOTAL 0.7 mg/dL (0.2-1.3); BLOOD UREA NITROGEN 35 mg/dL (7-20); CALCIUM 9.3 mg/dL (8.4-10.2); CARBON DIOXIDE 15 mmol/L (22-30); CHLORIDE 117 mmol/L (98-107); GLUCOSE 116 mg/dL (75-110); POTASSIUM 3.9 mmol/L (3.6-5.0); SODIUM 143.3 mmol/L (137-145); TOTAL PROTEIN 5.7 g/dL (6.3-8.2)
[2018-05-30] MEDS: CEFTRIAXONE SODIUM 1,000 MG in DEXTROSE 5%-WATER 50 ML IV SCH (10:22)
[2018-05-30] MEDS: IPRATROPIUM/ALBUTEROL 0.5-2.5 MG/3 ML AMPUL NEB PRN (10:58)
--- NOTE | 2018-05-30 19:27 | PDOC PROGRESS REPORT ---
Subjective Progress Note for:: 05/30/18 Subjective:: Patient was seen by the bedside, she continues to improve, the family is reluctant to proceed with colonoscopy, I do not understand why they continue to refuse this procedure from outpatient, she refused , family refused to get her to the GI physician for screening colonoscopy, she is now admitted with severe iron deficiency anemia for which colonoscopy is indicated, family still continued to refuse the basis for which is not clear. Reason For Visit: SEPSIS,UTI Physical Exam Vital Signs: Temp Pulse Resp BP Pulse Ox 98.6 F 90 20 153/79 H 99 05/30/18 15:59 05/30/18 15:59 05/30/18 15:59 05/30/18 15:59 05/30/18 15:59 Intake & Output 05/29/18 05/30/18 05/31/18 06:59 06:59 06:59 Intake Total 840 1423 230 Output Total 580 3075 900 Balance 131 -0941 -847 Weight 78.9 kg 74.7 kg General appearance: PRESENT: no acute distress Eye exam: PRESENT: PERRLA Respiratory exam: PRESENT: clear to auscultation dionte Cardiovascular exam: PRESENT: +S1, +S2 GI/Abdominal exam: PRESENT: soft Neurological exam: PRESENT: alert Results Laboratory Results: 05/30/18 05:44 05/30/18 05:44 05/29/18 05/30/18 05/30/18 08:04 05:44 05:44 WBC 11.0 H RBC 3.50 L Hgb 9.0 L D Hct 26.5 L MCV 76 L D MCH 25.7 L MCHC 34.0 RDW 21.7 H Plt Count 143 L Seg Neutrophils % 69.2 Lymphocytes % 10.6 L Monocytes % 16.1 H Eosinophils % 3.6 Basophils % 0.5 Absolute Neutrophils 7.6 Absolute Lymphocytes 1.2 Absolute Monocytes 1.8 H Absolute Eosinophils 0.4 Absolute Basophils 0.1 Sodium 143.3 Potassium 3.9 Chloride 117 H Carbon Dioxide 15 L Anion Gap 11 BUN 35 H Creatinine 1.61 H Est GFR ( Amer) 38 L Est GFR (Non-Af Amer) 31 L Glucose 116 H Calcium 9.3 Total Bilirubin 0.7 AST 13 L ALT 19 Alkaline Phosphatase 58 Total Protein 5.7 L Albumin 2.7 L Blood Type A POSITIVE Antibody Screen NEGATIVE Impressions: Renal Ultrasound 05/27/18 00:00 IMPRESSION: 1. Normal right kidney. 2. Left kidney looks slightly small, suboptimally evaluated. 3. No hydronephrosis or gross mass. 4. Bladder decompressed by Fajardo catheter. Chest X-Ray 05/29/18 00:00 IMPRESSION: Mild subsegmental atelectasis in the left lateral lung base. Assessment & Plan - Diagnosis (1) Sepsis Qualifiers: Sepsis type: sepsis due to unspecified organism Qualified Code(s): A41.9 - Sepsis, unspecified organism Is this a current diagnosis for this admission?: Yes (2) Acute kidney injury Is this a current diagnosis for this admission?: Yes (3) Hyperkalemia Is this a current diagnosis for this admission?: Yes (4) UTI (urinary tract infection) Qualifiers: Urinary tract infection type: acute cystitis Hematuria presence: without hematuria Qualified Code(s): N30.00 - Acute cystitis without hematuria Is this a current diagnosis for this admission?: Yes (5) Iron deficiency anemia due to chronic blood loss Is this a current diagnosis for this admission?: Yes (6) E. coli UTI Is this a current diagnosis for this admission?: Yes (7) E. coli septicemia Is this a current diagnosis for this admission?: Yes (8) Anemia Qualifiers: Anemia type: iron deficiency Iron deficiency anemia type: chronic blood loss Qualified Code(s): D50.0 - Iron deficiency anemia secondary to blood loss (chronic) Is this a current diagnosis for this admission?: Yes - Plan Summary Plan Summary: Continue IV antibiotic, hydration
[2018-05-31] MEDS: NORMAL SALINE 1000 ML 1,000 ML IV PRN (08:09)
[2018-05-31 09:16] LABS: ABSOLUTE EOSINOPHILS # (AUTO) 0.5 10^3/uL (0.0-0.6); ABSOLUTE LYMPHOCYTES (AUTO) 1.2 10^3/uL (0.5-4.7); ABSOLUTE MONOCYTES (AUTO) 1.6 10^3/uL (0.1-1.4); ABSOLUTE NEUT (AUTO) 5.8 10^3/uL (1.7-8.2); BASOPHILS % (AUTO) 0.5 % (0-2); EOSINOPHILS % (AUTO) 5.7 % (0-6); HEMOGLOBIN 9.5 g/dL (12.0-15.5); LYMPHOCYTES % (AUTO) 13.5 % (13-45); MEAN CORPUSCULAR HGB CONC 32.6 g/dL (32.0-36.0); MEAN CORPUSCULAR VOLUME 77 fl (80-97); MONOCYTES % (AUTO) 17.7 % (3-13); PLATELET COUNT 162 10^3/uL (150-450); RED BLOOD COUNT 3.79 10^6/uL (3.72-5.28); RED CELL DISTRIBUTION WIDTH 21.6 % (11.5-14.0); SEGMENTED NEUTROPHILS % (AUTO) 62.6 % (42-78); TOTAL CELLS COUNTED % (AUTO) 100 %; WHITE BLOOD COUNT 9.2 10^3/uL (4.0-10.5)
[2018-05-31 09:37] LABS: ALANINE AMINOTRANSFERASE 50 U/L (9-52); ALBUMIN 2.7 g/dL (3.5-5.0); ALKALINE PHOSPHATASE 76 U/L (38-126); ANION GAP 12 (5-19); ASPARTATE AMINO TRANSFERASE 56 U/L (14-36); BILIRUBIN,DIRECT 0.3 mg/dL (0.0-0.4); BILIRUBIN,TOTAL 0.4 mg/dL (0.2-1.3); BLOOD UREA NITROGEN 27 mg/dL (7-20); CALCIUM 9.7 mg/dL (8.4-10.2); CARBON DIOXIDE 15 mmol/L (22-30); CHLORIDE 121 mmol/L (98-107); GLUCOSE 100 mg/dL (75-110); SODIUM 148.1 mmol/L (137-145); TOTAL PROTEIN 5.9 g/dL (6.3-8.2)
[2018-05-31] MEDS: IPRATROPIUM/ALBUTEROL 0.5-2.5 MG/3 ML AMPUL NEB PRN (10:38)
[2018-05-31] MEDS: CEFTRIAXONE SODIUM 1,000 MG in DEXTROSE 5%-WATER 50 ML IV SCH (11:45)
--- NOTE | 2018-05-31 14:16 | PDOC PROGRESS REPORT ---
Subjective Progress Note for:: 05/31/18 Subjective:: She is tolerating oral feeding. Reported some amount of soft stool but no vimal diarrhea reported. No nausea or vomiting. She reported increase abdominal bouborygmi. Reason For Visit: SEPSIS,UTI Physical Exam Vital Signs: Temp Pulse Resp BP Pulse Ox 98.2 F 80 16 153/92 H 100 05/31/18 11:32 05/31/18 11:32 05/31/18 11:32 05/31/18 11:32 05/31/18 11:32 Intake & Output 05/30/18 05/31/18 06/01/18 06:59 06:59 06:59 Intake Total 1423 1920 Output Total 3075 1700 Balance -1652 220 Weight 74.7 kg 75.9 kg General appearance: PRESENT: no acute distress, well-developed, well-nourished Head exam: PRESENT: atraumatic, normocephalic Eye exam: PRESENT: conjunctiva pink, EOMI, PERRLA. ABSENT: scleral icterus Ear exam: PRESENT: normal external ear exam Mouth exam: PRESENT: moist, tongue midline Respiratory exam: PRESENT: clear to auscultation dionte Cardiovascular exam: PRESENT: RRR, +S1, +S2. ABSENT: diastolic murmur, rubs, systolic murmur Vascular exam: PRESENT: normal capillary refill. ABSENT: pallor GI/Abdominal exam: PRESENT: normal bowel sounds, soft. ABSENT: distended, guarding, mass, organolmegaly, rebound, tenderness Rectal exam: PRESENT: deferred Extremities exam: ABSENT: pedal edema Musculoskeletal exam: PRESENT: normal inspection Neurological exam: PRESENT: alert, awake, oriented to person, oriented to place , oriented to time, oriented to situation, CN II-XII grossly intact. ABSENT: motor sensory deficit Psychiatric exam: PRESENT: appropriate affect, normal mood. ABSENT: homicidal ideation, suicidal ideation Skin exam: PRESENT: dry, intact, warm. ABSENT: cyanosis, rash Results Laboratory Results: 05/31/18 08:59 05/31/18 08:59 05/31/18 05/31/18 08:59 08:59 WBC 9.2 RBC 3.79 Hgb 9.5 L Hct 29.0 L MCV 77 L MCH 25.0 L MCHC 32.6 RDW 21.6 H Plt Count 162 Seg Neutrophils % 62.6 Lymphocytes % 13.5 Monocytes % 17.7 H Eosinophils % 5.7 Basophils % 0.5 Absolute Neutrophils 5.8 Absolute Lymphocytes 1.2 Absolute Monocytes 1.6 H Absolute Eosinophils 0.5 Absolute Basophils 0.0 Sodium 148.1 H Potassium 4.0 Chloride 121 H Carbon Dioxide 15 L Anion Gap 12 BUN 27 H Creatinine 1.25 Est GFR ( Amer) 51 L Est GFR (Non-Af Amer) 42 L Glucose 100 Calcium 9.7 Total Bilirubin 0.4 AST 56 H ALT 50 Alkaline Phosphatase 76 Total Protein 5.9 L Albumin 2.7 L Impressions: Renal Ultrasound 05/27/18 00:00 IMPRESSION: 1. Normal right kidney. 2. Left kidney looks slightly small, suboptimally evaluated. 3. No hydronephrosis or gross mass. 4. Bladder decompressed by Fajardo catheter. Chest X-Ray 05/29/18 00:00 IMPRESSION: Mild subsegmental atelectasis in the left lateral lung base. Assessment & Plan - Diagnosis (1) Acute kidney injury Is this a current diagnosis for this admission?: Yes Plan: See covering attending physician orders. (2) E. coli UTI Is this a current diagnosis for this admission?: Yes Plan: See covering attending physician orders. (3) E. coli septicemia Is this a current diagnosis for this admission?: Yes Plan: See covering attending physician orders. (4) Iron deficiency anemia Qualifiers: Iron deficiency anemia type: chronic blood loss Qualified Code(s): D50.0 - Iron deficiency anemia secondary to blood loss (chronic) Is this a current diagnosis for this admission?: Yes Plan: See covering attending physician orders. - Time Time Spent with patient: 25-34 minutes Medications reviewed and adjusted accordingly: Yes Anticipated discharge: Home Within: Other - Inpatient Certification Based on my medical assessment, after consideration of the patient's comorbidities, presenting symptoms, or acuity I expect that the services needed warrant INPATIENT care.: Yes I certify that my determination is in accordance with my understanding of Medicare's requirements for reasonable and necessary INPATIENT services [42 CFR 412.3e].: Yes Medical Necessity: Need Close Monitoring Due to Risk of Patient Decompensation, Need For IV Fluids, Need For Continuous Telemetry Monitoring, Need for IV Antibiotics, Risk of Complication if Not Cared For in Hospital Post Hospital Care: D/C [employer] Documentation - Plan Summary Plan Summary: See covering attending physician orders.
[2018-05-31] MEDS: HEPARIN SOD (PORCINE) 5,000 UNIT/ML 1 ML SYRINGE SUBCUT SCH ×2 (15:04→21:12)
[2018-05-31] MEDS: BISACODYL 5 MG TABEC PO SCH (18:35)
[2018-06-01] MEDS: HEPARIN SOD (PORCINE) 5,000 UNIT/ML 1 ML SYRINGE SUBCUT SCH ×3 (05:21→21:31)
[2018-06-01] MEDS: PEG 3350/NA SULF,BICARB,CL/KCL 4000 ML PO SCH (07:39)
[2018-06-01 08:09] LABS: ABSOLUTE BASOPHILS # (AUTO) 0.1 10^3/uL (0.0-0.2); ABSOLUTE EOSINOPHILS # (AUTO) 0.5 10^3/uL (0.0-0.6); ABSOLUTE LYMPHOCYTES (AUTO) 1.5 10^3/uL (0.5-4.7); ABSOLUTE MONOCYTES (AUTO) 1.3 10^3/uL (0.1-1.4); ABSOLUTE NEUT (AUTO) 6.2 10^3/uL (1.7-8.2); BASOPHILS % (AUTO) 0.6 % (0-2); EOSINOPHILS % (AUTO) 5.5 % (0-6); HEMATOCRIT 24.8 % (36.0-47.0); HEMOGLOBIN 8.3 g/dL (12.0-15.5); LYMPHOCYTES % (AUTO) 15.3 % (13-45); MEAN CORPUSCULAR HEMOGLOBIN 25.5 pg (27.0-33.4); MEAN CORPUSCULAR HGB CONC 33.4 g/dL (32.0-36.0); MEAN CORPUSCULAR VOLUME 76 fl (80-97); MONOCYTES % (AUTO) 13.6 % (3-13); PLATELET COUNT 176 10^3/uL (150-450); RED BLOOD COUNT 3.24 10^6/uL (3.72-5.28); RED CELL DISTRIBUTION WIDTH 21.3 % (11.5-14.0); TOTAL CELLS COUNTED % (AUTO) 100 %; WHITE BLOOD COUNT 9.5 10^3/uL (4.0-10.5)
[2018-06-01 08:26] LABS: ALANINE AMINOTRANSFERASE 45 U/L (9-52); ALBUMIN 2.3 g/dL (3.5-5.0); ALKALINE PHOSPHATASE 62 U/L (38-126); ANION GAP 13 (5-19); ASPARTATE AMINO TRANSFERASE 36 U/L (14-36); BILIRUBIN,DIRECT 0.3 mg/dL (0.0-0.4); BILIRUBIN,TOTAL 0.3 mg/dL (0.2-1.3); BLOOD UREA NITROGEN 19 mg/dL (7-20); CALCIUM 9.2 mg/dL (8.4-10.2); CARBON DIOXIDE 14 mmol/L (22-30); CHLORIDE 119 mmol/L (98-107); GLUCOSE 82 mg/dL (75-110); SODIUM 146.1 mmol/L (137-145); TOTAL PROTEIN 4.9 g/dL (6.3-8.2)
[2018-06-01] MEDS: CEFTRIAXONE SODIUM 1,000 MG in DEXTROSE 5%-WATER 50 ML IV SCH (09:01)
[2018-06-01] MEDS: ACETAMINOPHEN 325 MG TABLET PO PRN (09:25)
--- NOTE | 2018-06-01 17:06 | PDOC PROGRESS REPORT ---
Subjective Progress Note for:: 06/01/18 Subjective:: No fever or chills. No nausea, vomiting or abdominal pain. No chest pain or difficulty with breathing. I had extensive discussion with patient, daughter and grand daughter at bedside regarding need for endoscopic and colonoscopy evaluation regarding her anemia. Despite extensive discussion family at this time refused procedures and will reconsider upon discharge on outpatient bases. Reason For Visit: SEPSIS,UTI Physical Exam Vital Signs: Temp Pulse Resp BP Pulse Ox 98.3 F 68 16 184/79 H 100 06/01/18 11:15 06/01/18 11:15 06/01/18 11:15 06/01/18 11:15 06/01/18 11:15 Intake & Output 05/31/18 06/01/18 06/02/18 06:59 06:59 06:59 Intake Total 1920 3809 Output Total 1700 1100 Balance 220 2709 Weight 75.9 kg 78.4 kg Physical Exam: General appearance: PRESENT: no acute distress, well-developed, well-nourished Head exam: PRESENT: atraumatic, normocephalic Eye exam: PRESENT: conjunctiva pink, EOMI, PERRLA. ABSENT: scleral icterus Ear exam: PRESENT: normal external ear exam Mouth exam: PRESENT: moist, tongue midline Respiratory exam: PRESENT: clear to auscultation dionte Cardiovascular exam: PRESENT: RRR, +S1, +S2. ABSENT: diastolic murmur, rubs, systolic murmur Vascular exam: PRESENT: normal capillary refill. ABSENT: pallor GI/Abdominal exam: PRESENT: normal bowel sounds, soft. ABSENT: distended, guarding, mass, organomegaly, rebound, tenderness Rectal exam: PRESENT: deferred Extremities exam: ABSENT: pedal edema Musculoskeletal exam: PRESENT: normal inspection Neurological exam: PRESENT: alert, awake, oriented to person, oriented to place , oriented to time, oriented to situation, CN II-XII grossly intact. ABSENT: motor sensory deficit Psychiatric exam: PRESENT: appropriate affect, normal mood. ABSENT: homicidal ideation, suicidal ideation Skin exam: PRESENT: dry, intact, warm. ABSENT: cyanosis, rash Results Laboratory Results: 06/01/18 06:57 06/01/18 06:57 05/31/18 06/01/18 06/01/18 23:30 06:57 06:57 WBC 9.5 RBC 3.24 L Hgb 8.3 L Hct 24.8 L MCV 76 L MCH 25.5 L MCHC 33.4 RDW 21.3 H Plt Count 176 Seg Neutrophils % 65.0 Lymphocytes % 15.3 Monocytes % 13.6 H Eosinophils % 5.5 Basophils % 0.6 Absolute Neutrophils 6.2 Absolute Lymphocytes 1.5 Absolute Monocytes 1.3 Absolute Eosinophils 0.5 Absolute Basophils 0.1 Sodium 146.1 H Potassium 4.0 Chloride 119 H Carbon Dioxide 14 L Anion Gap 13 BUN 19 Creatinine 1.08 Est GFR ( Amer) > 60 Est GFR (Non-Af Amer) 50 L Glucose 82 Calcium 9.2 Total Bilirubin 0.3 AST 36 ALT 45 Alkaline Phosphatase 62 Total Protein 4.9 L Albumin 2.3 L Stool Occult Blood NEGATIVE Impressions: Renal Ultrasound 05/27/18 00:00 IMPRESSION: 1. Normal right kidney. 2. Left kidney looks slightly small, suboptimally evaluated. 3. No hydronephrosis or gross mass. 4. Bladder decompressed by Fajardo catheter. Chest X-Ray 05/29/18 00:00 IMPRESSION: Mild subsegmental atelectasis in the left lateral lung base. Assessment & Plan - Diagnosis (1) Acute kidney injury Is this a current diagnosis for this admission?: Yes (2) E. coli UTI Is this a current diagnosis for this admission?: Yes (3) E. coli septicemia Is this a current diagnosis for this admission?: Yes (4) Iron deficiency anemia Qualifiers: Iron deficiency anemia type: chronic blood loss Qualified Code(s): D50.0 - Iron deficiency anemia secondary to blood loss (chronic) Is this a current diagnosis for this admission?: Yes - Time Time Spent with patient: 25-34 minutes Medications reviewed and adjusted accordingly: Yes Anticipated discharge: Home Within: Other - Inpatient Certification Based on my medical assessment, after consideration of the patient's comorbidities, presenting symptoms, or acuity I expect that the services needed warrant INPATIENT care.: Yes I certify that my determination is in accordance with my understanding of Medicare's requirements for reasonable and necessary INPATIENT services [42 CFR 412.3e].: Yes Medical Necessity: Need Close Monitoring Due to Risk of Patient Decompensation, Need For IV Fluids, Need For Continuous Telemetry Monitoring, Need for IV Antibiotics, Risk of Complication if Not Cared For in Hospital Post Hospital Care: D/C Slps Documentation - Plan Summary Plan Summary: See covering attending physician orders.
[2018-06-01] MEDS ORDERED: CEFUROXIME 500 MG TABLET PO SCH (18:00)
[2018-06-01] MEDS: BISACODYL 5 MG TABEC PO SCH (18:06)
[2018-06-02] MEDS: HEPARIN SOD (PORCINE) 5,000 UNIT/ML 1 ML SYRINGE SUBCUT SCH ×2 (05:07→14:53)
[2018-06-02] MEDS ORDERED: PEG 3350/NA SULF,BICARB,CL/KCL 4000 ML PO SCH (08:00)
[2018-06-02] MEDS: PEG 3350/NA SULF,BICARB,CL/KCL 4000 ML PO SCH (09:50)
[2018-06-02] MEDS ORDERED: CEFUROXIME 500 MG TABLET PO SCH (10:00)
[2018-06-02 12:41] VITALS: BP 175/71
--- NOTE | 2018-06-02 20:14 | PDOC DISCHARGE SUMMARY ---
General - Admit/Disc Date/PCP Admission Date/Primary Care Provider: 05/27/18 14:38 ADRIAN BLAKE MD Discharge Date: 06/02/18 - Discharge Diagnosis (1) E. coli septicemia Is this a current diagnosis for this admission?: Yes (2) Sepsis Is this a current diagnosis for this admission?: Yes (3) Acute kidney injury Is this a current diagnosis for this admission?: Yes (4) Hyperkalemia Is this a current diagnosis for this admission?: Yes (5) UTI (urinary tract infection) Is this a current diagnosis for this admission?: Yes (6) Iron deficiency anemia due to chronic blood loss Is this a current diagnosis for this admission?: Yes (7) E. coli UTI Is this a current diagnosis for this admission?: Yes (8) Anemia Is this a current diagnosis for this admission?: Yes (9) Metabolic encephalopathy Is this a current diagnosis for this admission?: Yes - Additional Information Resuscitation Status: Full Code Home Medications: Carvedilol [Coreg] 25 mg PO BID 09/21/11 Metformin HCl [Glucophage] 1,000 mg PO BID 09/21/11 Donepezil HCl [Aricept] 10 mg PO QHS 05/27/18 Ferrous Sulfate 325 mg PO DAILY 05/27/18 Multivit-Min/Iron/Folic/Ngl190 [Hair, Skin and Nails Tablet] 1 each PO DAILY Oxycodone HCl 15 mg PO Q4HP PRN 05/27/18 Prevagen 1 tab PO DAILY 05/27/18 History of Present Illness History of Present Illness: MILI SUAREZ is a 72 year old female,She was brought to the emergency room by family for evaluation of altered mental status, patient is well-known to me she is extremely noncompliant with office visits, she has type 2 diabetes mellitus, with underlying dementia, arthropathy of both knees the left more than the right, in the emergency room she was evaluated, she was found to be septic, the white blood cell was 16,000 there was associated acute kidney injury with hyperkalemia, severe anemia, iron deficiency type. Patient was referred multiple times for screening colonoscopy but she never kept the appointment, she will need colonoscopy for evaluation of this severe iron deficiency anemia.The source of the sepsis is the urine, the urine is grossly abnormal with precipitation,large junky precipitates. History taking was a challenge, she was altered mental status, stuporous though arousable. Family also stated that she was short of breath most likely from the anemia, the chest x-ray did not show any acute infiltrate to suggest pneumonia.Patient's condition is critical.She will be admitted to a telemetry bed for close monitoring Hospital Course Hospital Course: Patient was admitted for the management of E. coli septicemia associated with acute kidney injury and hyperkalemia, She was treated with IV antibiotic, IV fluid, she also was diagnosed with severe iron deficiency anemia, she was transfused with packed red blood cells. Colonoscopy was recommended for this patient, patient's family refused colonoscopy for this patient. She has baseline dementia, she could not make informed decision , when she was admitted she was confused but with treatment she regained full consciousness she did recognize me, she was oriented to time place and person but patient's family did not give her the opportunity for this patient to make informed decision for herself she was sent out AMA today before I go directly talk to this patient I was off this weekend when she was admitted last week she was altered from the septicemia and she was not in the position to make informed decision but over the weekend she regained full consciousness and was in the position to make informed decision. She was supposed to have outpatient screening colonoscopy done but family did not take up for the procedure the family as shown persistent hostility for her to have colonoscopy though the likelihood of colonic neoplasm is very high in this patient, she has severe iron emergency anemia, she was given iron infusion and also blood transfusion Physical Exam Vital Signs: Temp Pulse Resp BP Pulse Ox 98.5 F 78 16 175/71 H 97 06/02/18 11:48 06/02/18 11:48 06/02/18 11:48 06/02/18 11:48 06/02/18 11:48 Intake & Output 06/01/18 06/02/18 06/03/18 06:59 06:59 06:59 Intake Total 3809 1365 Output Total 1100 659 Balance 2709 706 Weight 78.4 kg 78.8 kg Results Laboratory Results: 06/01/18 06:57 06/01/18 06:57 Impressions: Renal Ultrasound 05/27/18 00:00 IMPRESSION: 1. Normal right kidney. 2. Left kidney looks slightly small, suboptimally evaluated. 3. No hydronephrosis or gross mass. 4. Bladder decompressed by Fajardo catheter. Chest X-Ray 05/29/18 00:00 IMPRESSION: Mild subsegmental atelectasis in the left lateral lung base. Qualifiers - * PATIENT BEING DISCHARGED WITH ANY OF THE FOLLOWING DIAGNOSIS: No Plan Discharge Plan: Patient left AGAINST MEDICAL ADVICE
== END 2018-06-02 15:30 | disposition left against medical advice (07) | DRG 871 ==
LOC: ER 10:20 → EH 14:38 → 4S 15:42
PROVIDERS: ADMIT Internal Medicine; ATTEND Internal Medicine
PROC: 30233N1 Transfusion of Nonautologous Red Blood Cells into Peripheral Vein, Percutaneous Approach (ICD-10-PCS; principal; 2018-05-29)
DX: A41.51 Sepsis due to Escherichia coli [E. coli] (principal); G93.41 Metabolic encephalopathy; N17.9 Acute kidney failure, unspecified; N39.0 Urinary tract infection, site not specified; E87.5 Hyperkalemia; D50.0 Iron deficiency anemia secondary to blood loss (chronic); E86.0 Dehydration; E11.8 Type 2 diabetes mellitus with unspecified complications; I10 Essential (primary) hypertension; F03.90 Unspecified dementia, unspecified severity, without behavioral disturbance, psychotic disturbance, mood disturbance, and anxiety; R19.7 Diarrhea, unspecified; Z91.19 Patient's noncompliance with other medical treatment and regimen; Z79.84 Long term (current) use of oral hypoglycemic drugs; Z79.899 Other long term (current) drug therapy; Z53.29 Procedure and treatment not carried out because of patient's decision for other reasons
CPT/HCPCS: 36415; 36430; 71045; 71046; 76775; 80048; 80053; 80061; 80076; 81001; 82272; 82570; 82607; 82728; 82746; 82962; 83036; 83540; 83550; 83690; 83735; 84156; 84439; 84443; 85025; 85045; 86850; 86900; 86901; 86920; 87040; 87077; 87086; 87088; 87186; 93005; 93010; 94640; 99291; J0610; J0696; J1335; J1644; J1756; J1815; J1940; J3490; J7030; J7620; P9016

== ENCOUNTER 2018-06-17 19:17 | Inpatient (IN) | payer MEDICARE ==
[2018-06-17] MEDS: HEPARIN SODIUM,PORCINE/D5W 25,000 UNIT/250 ML RTUINJ IV PRN (20:53)
[2018-06-17] MEDS ORDERED: HEPARIN SOD (PORCINE) 1,000 UNIT/ML 10 ML VIAL IV ONE (21:00)
--- NOTE | 2018-06-17 21:25 | PDOC H&P ---
History of Present Illness Admission Date/PCP: 06/17/18 19:17 ADRIAN BLAKE MD History of Present Illness: MILI SUAREZ is a 72 year old female,She was recently admitted for the management of septic shock due to E. coli UTI and septicemia. She also had iron deficiency anemia. On the last hospital admission she was offered colonoscopy but family refused infact she left AMA on this issue She came to the office for follow-up evaluation, she complained of nodular swellings in the lower extremities, I suspected thrombophlebitis I requested for a venous Doppler of the lower extremities. The venous Doppler was done today, there was incidental finding of deep vein thrombosis affecting the femoral vein distally and also the saphenous vein. She was admitted directly from outpatient to the hospital I am very concerned about this patient because she has iron deficiency anemia and she now also have deep vein thrombosis without any apparent cause for the deep vein thrombosis no recent long distance travel, it seems that she may have a hypercoagulable state I suspect malignancy, Especially with iron deficiency anemia and DVT with no apparent risk factors Past Medical History Cardiac Medical History: Reports: Hypertension Denies: Myocardial Infarction Pulmonary Medical History: Denies: Asthma Neurological Medical History: Denies: Seizures Endocrine Medical History: Reports: Diabetes Mellitus Type 2 GI Medical History: Denies: Hepatitis, Hiatal Hernia Musculoskeltal Medical History: Reports: Arthritis Psychiatric Medical History: Reports: Dementia Denies: Depression Hematology: Denies: Anemia, Sickle Cell Disease Past Surgical History Past Surgical History: Social History Smoking Status: Never Smoker Frequency of Alcohol Use: None Hx Recreational Drug Use: No Drugs: None Hx Prescription Drug Abuse: No Family History Family History: Reviewed & Not Pertinent Parental Family History Reviewed: Yes Children Family History Reviewed: Yes Sibling(s) Family History Reviewed.: Yes Medication/Allergy Home Medications: Carvedilol [Coreg] 25 mg PO BID 09/21/11 Metformin HCl [Glucophage] 1,000 mg PO BID 09/21/11 Donepezil HCl [Aricept] 10 mg PO QHS 05/27/18 Oxycodone HCl 15 mg PO Q6HP PRN 05/27/18 Prevagen 1 tab PO DAILY 05/27/18 Duloxetine HCl [Cymbalta] 60 mg PO DAILY 06/18/18 Potassium Chloride 10 meq PO DAILY 06/18/18 Allergies/Adverse Reactions: No Known Allergies Allergy (Unverified 05/27/18 15:15) Review of Systems Constitutional: ABSENT: chills, fever(s), headache(s), weight gain, weight loss Eyes: ABSENT: visual disturbances Ears: ABSENT: hearing changes Cardiovascular: ABSENT: chest pain, dyspnea on exertion, edema, orthropnea, palpitations Respiratory: ABSENT: cough, hemoptysis Gastrointestinal: ABSENT: abdominal pain, constipation, diarrhea, hematemesis, hematochezia, nausea, vomiting Genitourinary: ABSENT: dysuria, hematuria Musculoskeletal: PRESENT: joint swelling Integumentary: ABSENT: rash, wounds Neurological: ABSENT: abnormal gait, abnormal speech, confusion, dizziness, focal weakness, syncope Psychiatric: ABSENT: anxiety, depression, homidical ideation, suicidal ideation Endocrine: ABSENT: cold intolerance, heat intolerance, menstrual abnormalities, polydipsia, polyuria Hematologic/Lymphatic: ABSENT: easy bleeding, easy bruising, lymphadenopathy Physical Exam Vital Signs: Temp Pulse Resp BP Pulse Ox 98.7 F 78 17 149/72 H 100 06/17/18 19:44 06/17/18 19:44 06/17/18 19:44 06/17/18 19:44 06/17/18 19:44 Intake & Output 06/16/18 06/17/18 06/18/18 06:59 06:59 06:59 Weight 68.7 kg General appearance: PRESENT: no acute distress Head exam: PRESENT: atraumatic, normocephalic Eye exam: PRESENT: PERRLA Ear exam: PRESENT: normal external ear exam Mouth exam: PRESENT: moist, tongue midline Neck exam: PRESENT: full ROM Respiratory exam: PRESENT: clear to auscultation dionte Cardiovascular exam: PRESENT: RRR, +S1, +S2 Vascular exam: PRESENT: normal capillary refill GI/Abdominal exam: PRESENT: normal bowel sounds, soft Rectal exam: PRESENT: deferred Neurological exam: PRESENT: alert, CN II-XII grossly intact. ABSENT: motor sensory deficit Psychiatric exam: PRESENT: appropriate affect Skin exam: PRESENT: dry, intact, warm Assessment & Plan - Diagnosis (1) Deep vein thrombosis of right femoral vein Qualifiers: Chronicity: acute Qualified Code(s): I82.411 - Acute embolism and thrombosis of right femoral vein Is this a current diagnosis for this admission?: Yes Plan: Patient is admitted for the management of the deep vein thrombosis of right femoral vein, this was an incidental finding from a venous Doppler that was done for evaluation of lower extremity swelling that was suspicious for phlebitis. She has iron deficiency anemia now DVT suggestive of hypercoagulable state. Patient will need colonoscopy to rule out colon cancer. She was offered this procedure multiple times both outpatient for screening purposes and inpatient the last time she was admitted. She will be treated with IV heparin per protocol for deep vein thrombosis (2) Iron deficiency anemia due to chronic blood loss Is this a current diagnosis for this admission?: Yes Plan: This is probably from chronic GI blood loss, consultation is requested from GI for colonoscopy and also possibly EGD
[2018-06-17 21:37] LABS: HEMATOCRIT 31.6 % (36.0-47.0); HEMOGLOBIN 10.1 g/dL (12.0-15.5); MEAN CORPUSCULAR HEMOGLOBIN 24.8 pg (27.0-33.4); MEAN CORPUSCULAR HGB CONC 31.9 g/dL (32.0-36.0); MEAN CORPUSCULAR VOLUME 78 fl (80-97); PLATELET COUNT 242 10^3/uL (150-450); RED BLOOD COUNT 4.06 10^6/uL (3.72-5.28); RED CELL DISTRIBUTION WIDTH 24.3 % (11.5-14.0)
[2018-06-17 21:38] LABS: INTERNATIONAL RATION (INR) 1.11; PROTHROMBIN TIME 14.9 SEC (11.4-15.4)
[2018-06-17 21:59] LABS: ALANINE AMINOTRANSFERASE 11 U/L (9-52); ALBUMIN 3.8 g/dL (3.5-5.0); ALKALINE PHOSPHATASE 81 U/L (38-126); AMYLASE 79 U/L (30-110); ANION GAP 11 (5-19); ASPARTATE AMINO TRANSFERASE 21 U/L (14-36); BILIRUBIN,DIRECT 0.3 mg/dL (0.0-0.4); BILIRUBIN,TOTAL 0.4 mg/dL (0.2-1.3); BLOOD UREA NITROGEN 20 mg/dL (7-20); CALCIUM 10.7 mg/dL (8.4-10.2); CARBON DIOXIDE 21 mmol/L (22-30); CHLORIDE 110 mmol/L (98-107); GLUCOSE 105 mg/dL (75-110); LIPASE 253.7 U/L (23-300); PHOSPHORUS 2.9 mg/dL (2.5-4.5); POTASSIUM 5.5 mmol/L (3.6-5.0); SODIUM 141.5 mmol/L (137-145); TOTAL PROTEIN 8.1 g/dL (6.3-8.2)
--- NOTE | 2018-06-17 22:11 | PDOC CONSULTATION ---
Consultation Consult Date: 06/17/18 Attending physician:: AJIT INIGUEZ Consult reason:: Hypercoagulable state. iron deficiency anemia History of Present Illness Admission Date/PCP: 06/17/18 19:17 ADRIAN BLAKE MD History of Present Illness: MILI SUAREZ is a 72 year old female patient known thru previous admission patient admitted for iron deficiency anemia and Dr Atwood was requested to see patient patient and family refused to have procedure done eventually signed out AMA I was asked to see if I could do procedure but then patient refused then she went back to see Dr Dawson now had DVT no other risk factors may have hypercoagulable state secondary to possible malignancy I along with Dr Dawson that she will need to have a GI work up since she will now have to be started on anticoagulation however it is unclear if she or her family wants to proceed Past Medical History Cardiac Medical History: Reports: Hypertension Denies: Myocardial Infarction Pulmonary Medical History: Denies: Asthma Neurological Medical History: Denies: Seizures Endocrine Medical History: Reports: Diabetes Mellitus Type 2 GI Medical History: Denies: Hepatitis, Hiatal Hernia Musculoskeltal Medical History: Reports: Arthritis Psychiatric Medical History: Reports: Dementia Denies: Depression Hematology: Denies: Anemia, Sickle Cell Disease Past Surgical History Past Surgical History: Reports: Orthopedic Surgery Denies: Amputation, Mastectomy, Pacemaker Social History Smoking Status: Unknown if Ever Smoked Frequency of Alcohol Use: None Hx Recreational Drug Use: No Drugs: None Hx Prescription Drug Abuse: No Family History Family History: Reviewed & Not Pertinent Parental Family History Reviewed: Yes Children Family History Reviewed: Unknown Sibling(s) Family History Reviewed.: Unknown Medication/Allergy Home Medications: Carvedilol [Coreg] 25 mg PO BID 09/21/11 Metformin HCl [Glucophage] 1,000 mg PO BID 09/21/11 Donepezil HCl [Aricept] 10 mg PO QHS 05/27/18 Ferrous Sulfate 325 mg PO DAILY 05/27/18 Multivit-Min/Iron/Folic/Emd339 [Hair, Skin and Nails Tablet] 1 each PO DAILY Oxycodone HCl 15 mg PO Q4HP PRN 05/27/18 Prevagen 1 tab PO DAILY 05/27/18 Allergies/Adverse Reactions: No Known Allergies Allergy (Unverified 05/27/18 15:15) Review of Systems Constitutional: PRESENT: weakness. ABSENT: fever(s), headache(s), night sweats Eyes: ABSENT: visual disturbances Ears: ABSENT: hearing changes Nose, Mouth, and Throat: ABSENT: mouth pain Cardiovascular: ABSENT: edema, orthropnea, palpitations Respiratory: ABSENT: dyspnea, hemoptysis Gastrointestinal: ABSENT: hematemesis, melena Genitourinary: ABSENT: dysuria, hematuria Integumentary: ABSENT: lesions, pruritus Neurological: ABSENT: syncope, tingling, tremor(s), vertigo Endocrine: ABSENT: polydipsia, polyphagia, polyuria Hematologic/Lymphatic: ABSENT: easy bruising Physical Exam Vital Signs: Temp Pulse Resp BP Pulse Ox 98.7 F 78 17 149/72 H 100 06/17/18 19:44 06/17/18 19:44 06/17/18 19:44 06/17/18 19:44 06/17/18 19:44 Intake & Output 06/16/18 06/17/18 06/18/18 06:59 06:59 06:59 Weight 68.7 kg General appearance: PRESENT: no acute distress Head exam: PRESENT: atraumatic, normocephalic Eye exam: PRESENT: EOMI, PERRLA. ABSENT: nystagmus, periorbital swelling, scleral icterus Mouth exam: PRESENT: moist, neck supple Throat exam: ABSENT: tonsillar exudate, tonsillogmegaly Respiratory exam: PRESENT: symmetrical, unlabored. ABSENT: tachypnea, wheezes Cardiovascular exam: PRESENT: RRR, +S1, +S2 GI/Abdominal exam: ABSENT: Chiu's sign, rebound, rigid Extremities exam: ABSENT: joint swelling Musculoskeletal exam: PRESENT: full ROM Neurological exam: PRESENT: oriented to time, oriented to situation, CN II-XII grossly intact Focused psych exam: ABSENT: restlessness Skin exam: PRESENT: normal color. ABSENT: mottled, pallor, urticaria, vesicles Results Laboratory Results: 06/17/18 21:00 06/17/18 21:00 WBC 8.0 RBC 4.06 Hgb 10.1 L Hct 31.6 L MCV 78 L MCH 24.8 L MCHC 31.9 L RDW 24.3 H Plt Count 242 Assessment & Plan - Diagnosis (1) Deep vein thrombosis of right femoral vein Qualifiers: Chronicity: acute Qualified Code(s): I82.411 - Acute embolism and thrombosis of right femoral vein Is this a current diagnosis for this admission?: Yes Plan: no usual risk factors of trauma, or stasis suspect possible due to underlying malignancy patient had previously refused colonoscopy and eventually was sent home now returns again, now with the need to begin anticoagulation see if they want to proceed if started on anticoagulation and starts to bleed, then will potentially have more problems (2) Anemia Qualifiers: Anemia type: iron deficiency Iron deficiency anemia type: chronic blood loss Qualified Code(s): D50.0 - Iron deficiency anemia secondary to blood loss (chronic) Plan: iron deficiency and previously advised to have a work up done patient as noted. along with family refused knowing that there could have been a malignancy if she refuses any scope then other option would be to be upper GI series along with small bowel follow thru, and possibly use Cologuard testing that way we have at least some evidence of some test being done. - Time Time Spent: 50 to 70 Minutes
[2018-06-17 22:13] LABS: FREE T4 (FREE THYROXINE) 1.65 ng/dL (0.78-2.19)
[2018-06-17 22:27] LABS: THYROID STIMULATING HORMONE 1.48 uIU/mL (0.47-4.68)
[2018-06-18 02:44] LABS: INTERNATIONAL RATION (INR) 1.07; PROTHROMBIN TIME 14.4 SEC (11.4-15.4)
[2018-06-18 03:21] LABS: PARTIAL THROMBOPLASTIN TIME > 235.0 SEC (23.5-35.8)
[2018-06-18 06:52] LABS: HEMATOCRIT 29.7 % (36.0-47.0); HEMOGLOBIN 9.4 g/dL (12.0-15.5); MEAN CORPUSCULAR HEMOGLOBIN 24.4 pg (27.0-33.4); MEAN CORPUSCULAR HGB CONC 31.7 g/dL (32.0-36.0); MEAN CORPUSCULAR VOLUME 77 fl (80-97); PLATELET COUNT 208 10^3/uL (150-450); RED BLOOD COUNT 3.87 10^6/uL (3.72-5.28); RED CELL DISTRIBUTION WIDTH 24.3 % (11.5-14.0); WHITE BLOOD COUNT 7.6 10^3/uL (4.0-10.5)
[2018-06-18 07:08] LABS: ALANINE AMINOTRANSFERASE 13 U/L (9-52); ALBUMIN 3.4 g/dL (3.5-5.0); ALKALINE PHOSPHATASE 67 U/L (38-126); ANION GAP 12 (5-19); ASPARTATE AMINO TRANSFERASE 17 U/L (14-36); BILIRUBIN,DIRECT 0.3 mg/dL (0.0-0.4); BILIRUBIN,TOTAL 0.4 mg/dL (0.2-1.3); BLOOD UREA NITROGEN 20 mg/dL (7-20); CALCIUM 10.3 mg/dL (8.4-10.2); CARBON DIOXIDE 19 mmol/L (22-30); CHLORIDE 111 mmol/L (98-107); CHOLESTEROL 120.12 mg/dL (0-200); GLUCOSE 91 mg/dL (75-110); POTASSIUM 5.7 mmol/L (3.6-5.0); SODIUM 141.8 mmol/L (137-145); TOTAL PROTEIN 7.3 g/dL (6.3-8.2); TRIGLYCERIDES 70 mg/dL (<150)
[2018-06-18 07:20] LABS: DIRECT LDL 57 mg/dL (<100)
[2018-06-18 07:23] LABS: ABSOLUTE LYMPHOCYTES# (MANUAL) 3.9 10^3/uL (0.5-4.7); ABSOLUTE MONOCYTES # (MANUAL) 0.6 10^3/uL (0.1-1.4); ABSOLUTE NEUTROPHILS# (MANUAL) 2.7 10^3/uL (1.7-8.2); ANISOCYTOSIS 3+; BASOPHILS % (MANUAL) 2 % (0-2); EOSINOPHILS % (MANUAL) 4 % (0-6); HYPOCHROMASIA SLIGHT; LYMPHOCYTES % (MANUAL) 51 % (13-45); MONOCYTES % (MANUAL) 8 % (3-13); PLATELET COMMENT ADEQUATE; POLYCHROMASIA SLIGHT; SEGMENTED NEUTROPHILS % (MAN) 35 % (42-78); TOTAL CELLS COUNTED 100; TOXIC GRANULATION SLIGHT
[2018-06-18 07:24] LABS: OVALOCYTES SLIGHT; POIKILOCYTOSIS 1+; SCHISTOCYTES SLIGHT
[2018-06-18 08:06] LABS: PARTIAL THROMBOPLASTIN TIME > 235.0 SEC (23.5-35.8)
[2018-06-18 12:00] LABS: INTERNATIONAL RATION (INR) 1.07; PROTHROMBIN TIME 14.5 SEC (11.4-15.4)
[2018-06-18 12:03] LABS: PARTIAL THROMBOPLASTIN TIME 129.2 SEC (23.5-35.8)
[2018-06-18 12:31] LABS: APPEARANCE,URINE SLIGHTLY-CLOUDY; BILIRUBIN,URINE NEGATIVE (NEGATIVE); COLOR,URINE YELLOW; GLUCOSE, URINE NEGATIVE (NEGATIVE); KETONES,URINE NEGATIVE (NEGATIVE); LEUKOCYTE ESTERASE,URINE MODERATE (NEGATIVE); NITRITE,URINE NEGATIVE (NEGATIVE); PROTEIN,URINE NEGATIVE (NEGATIVE); URINE SPECIFIC GRAVITY 1.015; UROBILINOGEN,URINE NEGATIVE mg/dL (<2.0)
[2018-06-18] MEDS ORDERED: INSULIN LISPRO 100 UNIT/ML 3 ML VIAL SUBCUT PRN (14:26)
[2018-06-18] MEDS ORDERED: GLUCAGON,HUMAN RECOMB 1 MG INJ IM PRN (14:26)
[2018-06-18] MEDS ORDERED: DEXTROSE 40% GEL 15 GM TUBE PO PRN ×2 (14:26)
[2018-06-18] MEDS ORDERED: DEXTROSE 50%-WATER 25 GM/50 ML DISP.SYRIN IV PRN ×2 (14:26)
[2018-06-18] MEDS ORDERED: PREVAGEN PO SCH (14:30)
--- NOTE | 2018-06-18 14:46 | PDOC PROGRESS REPORT ---
Subjective Progress Note for:: 06/18/18 Subjective:: Patient was seen by the bedside, I had a long discussion with patient's oldest daughter about her mother's condition, the plan of care, family is now agreeable to colonoscopy and they signed the consent for the procedure Reason For Visit: DEEP VEIN THROMBOSIS OF THE RIGHT FEMORAL VEIN Physical Exam Vital Signs: Temp Pulse Resp BP Pulse Ox 98.6 F 77 18 150/82 H 100 06/18/18 11:26 06/18/18 11:26 06/18/18 11:26 06/18/18 11:26 06/18/18 11:26 Intake & Output 06/17/18 06/18/18 06/19/18 06:59 06:59 06:59 Intake Total 320 Balance 320 Weight 68.7 kg General appearance: PRESENT: no acute distress Eye exam: PRESENT: PERRLA Respiratory exam: PRESENT: clear to auscultation dionte Cardiovascular exam: PRESENT: +S1, +S2 GI/Abdominal exam: PRESENT: soft Neurological exam: PRESENT: alert Results Laboratory Results: 06/18/18 06:34 06/18/18 06:34 06/17/18 06/17/18 06/17/18 21:00 21:00 21:00 WBC 8.0 RBC 4.06 Hgb 10.1 L Hct 31.6 L MCV 78 L MCH 24.8 L MCHC 31.9 L RDW 24.3 H Plt Count 242 Seg Neutrophils % Lymphocytes % Monocytes % Eosinophils % Basophils % Absolute Neutrophils Absolute Lymphocytes Absolute Monocytes Absolute Eosinophils Absolute Basophils Sodium 141.5 Potassium 5.5 H Chloride 110 H Carbon Dioxide 21 L Anion Gap 11 BUN 20 Creatinine 1.81 H Est GFR ( Amer) 33 L Est GFR (Non-Af Amer) 27 L Glucose 105 Calcium 10.7 H Phosphorus 2.9 Magnesium 1.8 Total Bilirubin 0.4 AST 21 ALT 11 Alkaline Phosphatase 81 Ammonia < 8.7 L Total Protein 8.1 Albumin 3.8 Triglycerides Cholesterol LDL Cholesterol Direct VLDL Cholesterol HDL Cholesterol Amylase 79 Lipase 253.7 TSH Free T4 Urine Color Urine Appearance Urine pH Ur Specific [place] Urine Protein Urine Glucose (UA) Urine Ketones Urine Blood Urine Nitrite Ur Leukocyte Esterase Urine WBC (Auto) Urine RBC (Auto) 06/17/18 06/18/18 06/18/18 21:00 06:34 06:34 WBC 7.6 RBC 3.87 Hgb 9.4 L Hct 29.7 L MCV 77 L MCH 24.4 L MCHC 31.7 L RDW 24.3 H Plt Count 208 Seg Neutrophils % Not Reportable Lymphocytes % Not Reportable Monocytes % Not Reportable Eosinophils % Not Reportable Basophils % Not Reportable Absolute Neutrophils Not Reportable Absolute Lymphocytes Not Reportable Absolute Monocytes Not Reportable Absolute Eosinophils Not Reportable Absolute Basophils Not Reportable Sodium 141.8 Potassium 5.7 H Chloride 111 H Carbon Dioxide 19 L Anion Gap 12 BUN 20 Creatinine 1.83 H Est GFR ( Amer) 33 L Est GFR (Non-Af Amer) 27 L Glucose 91 Calcium 10.3 H Phosphorus Magnesium Total Bilirubin 0.4 AST 17 ALT 13 Alkaline Phosphatase 67 Ammonia Total Protein 7.3 Albumin 3.4 L Triglycerides 70 Cholesterol 120.12 LDL Cholesterol Direct 57 VLDL Cholesterol 14.0 HDL Cholesterol 26 L Amylase Lipase TSH 1.48 Free T4 1.65 Urine Color Urine Appearance Urine pH Ur Specific [place] Urine Protein Urine Glucose (UA) Urine Ketones Urine Blood Urine Nitrite Ur Leukocyte Esterase Urine WBC (Auto) Urine RBC (Auto) 06/18/18 11:55 WBC RBC Hgb Hct MCV MCH MCHC RDW Plt Count Seg Neutrophils % Lymphocytes % Monocytes % Eosinophils % Basophils % Absolute Neutrophils Absolute Lymphocytes Absolute Monocytes Absolute Eosinophils Absolute Basophils Sodium Potassium Chloride Carbon Dioxide Anion Gap BUN Creatinine Est GFR ( Amer) Est GFR (Non-Af Amer) Glucose Calcium Phosphorus Magnesium Total Bilirubin AST ALT Alkaline Phosphatase Ammonia Total Protein Albumin Triglycerides Cholesterol LDL Cholesterol Direct VLDL Cholesterol HDL Cholesterol Amylase Lipase TSH Free T4 Urine Color YELLOW Urine Appearance SLIGHTLY-CLOUDY Urine pH 6.0 Ur Specific [place] 1.015 Urine Protein NEGATIVE Urine Glucose (UA) NEGATIVE Urine Ketones NEGATIVE Urine Blood SMALL H Urine Nitrite NEGATIVE Ur Leukocyte Esterase MODERATE H Urine WBC (Auto) 42 Urine RBC (Auto) 35 06/17/18 06/17/18 06/18/18 21:00 21:00 02:24 Creatine Kinase 26 L 21 L Troponin I < 0.012 06/18/18 06/18/18 06/18/18 02:24 08:20 08:20 Creatine Kinase 24 L Troponin I < 0.012 < 0.012 Assessment & Plan - Diagnosis (1) Deep vein thrombosis of right femoral vein Qualifiers: Chronicity: acute Qualified Code(s): I82.411 - Acute embolism and thrombosis of right femoral vein Is this a current diagnosis for this admission?: Yes (2) Iron deficiency anemia due to chronic blood loss Is this a current diagnosis for this admission?: Yes (3) Acute kidney injury Is this a current diagnosis for this admission?: Yes Plan: The last time she was discharged from this hospital on 06/01/2018, the serum creatinine was 1.08, the serum creatinine for the most recent lab since admission is 1.8 suggest acute kidney injury, this could also be from blood loss , will continue to monitor closely
[2018-06-18] MEDS ORDERED: OXYCODONE HCL IR 5 MG TABLET PO PRN (14:52)
[2018-06-18] MEDS ORDERED: PEG 3350/NA SULF,BICARB,CL/KCL 4000 ML PO ONE ×2 (15:00→16:00)
[2018-06-18 17:36] LABS: ALANINE AMINOTRANSFERASE 16 U/L (9-52); ALBUMIN 3.3 g/dL (3.5-5.0); ALKALINE PHOSPHATASE 60 U/L (38-126); ANION GAP 11 (5-19); ASPARTATE AMINO TRANSFERASE 13 U/L (14-36); BILIRUBIN,DIRECT 0.2 mg/dL (0.0-0.4); BILIRUBIN,TOTAL 0.2 mg/dL (0.2-1.3); BLOOD UREA NITROGEN 21 mg/dL (7-20); CALCIUM 10.3 mg/dL (8.4-10.2); CARBON DIOXIDE 20 mmol/L (22-30); CHLORIDE 110 mmol/L (98-107); GLUCOSE 108 mg/dL (75-110); POTASSIUM 5.7 mmol/L (3.6-5.0); SODIUM 140.5 mmol/L (137-145); TOTAL PROTEIN 7.1 g/dL (6.3-8.2)
[2018-06-18] MEDS: HEPARIN SODIUM,PORCINE/D5W 25,000 UNIT/250 ML RTUINJ IV PRN (17:44)
[2018-06-18] MEDS: DONEPEZIL HCL 5 MG TABLET PO SCH (20:59)
[2018-06-18] MEDS: CARVEDILOL 12.5 MG TABLET PO SCH (21:00)
[2018-06-18] MEDS ORDERED: (PENDING PHARMACY ID) (Donepezil Hcl [Aricept] 10 MG) PO SCH (22:00)
[2018-06-19 05:07] LABS: ABSOLUTE BASOPHILS # (AUTO) 0.1 10^3/uL (0.0-0.2); ABSOLUTE EOSINOPHILS # (AUTO) 0.3 10^3/uL (0.0-0.6); ABSOLUTE LYMPHOCYTES (AUTO) 3.7 10^3/uL (0.5-4.7); ABSOLUTE MONOCYTES (AUTO) 0.8 10^3/uL (0.1-1.4); ABSOLUTE NEUT (AUTO) 2.5 10^3/uL (1.7-8.2); BASOPHILS % (AUTO) 1.7 % (0-2); EOSINOPHILS % (AUTO) 4.5 % (0-6); HEMATOCRIT 28.8 % (36.0-47.0); HEMOGLOBIN 9.4 g/dL (12.0-15.5); LYMPHOCYTES % (AUTO) 49.3 % (13-45); MEAN CORPUSCULAR HEMOGLOBIN 25.2 pg (27.0-33.4); MEAN CORPUSCULAR HGB CONC 32.8 g/dL (32.0-36.0); MEAN CORPUSCULAR VOLUME 77 fl (80-97); MONOCYTES % (AUTO) 10.4 % (3-13); PLATELET COUNT 201 10^3/uL (150-450); RED BLOOD COUNT 3.75 10^6/uL (3.72-5.28); RED CELL DISTRIBUTION WIDTH 24.1 % (11.5-14.0); SEGMENTED NEUTROPHILS % (AUTO) 34.1 % (42-78); TOTAL CELLS COUNTED % (AUTO) 100 %; WHITE BLOOD COUNT 7.4 10^3/uL (4.0-10.5)
[2018-06-19 05:26] LABS: ACANTHOCYTES SLIGHT; ANISOCYTOSIS 3+; BURR CELLS 2+; HYPOCHROMASIA 1+; OVALOCYTES SLIGHT; POIKILOCYTOSIS 2+
[2018-06-19 05:27] LABS: PLATELET COMMENT ADEQUATE; SCHISTOCYTES 1+; TEAR DROP CELLS SLIGHT
[2018-06-19] MEDS: HEPARIN SOD (PORCINE) 1,000 UNIT/ML 10 ML VIAL IV PRN ×2 (07:10→16:09)
[2018-06-19] MEDS: DULOXETINE HCL 30 MG CAPSULE.DR PO SCH (10:38)
[2018-06-19] MEDS: CARVEDILOL 12.5 MG TABLET PO SCH ×2 (10:38→21:25)
--- NOTE | 2018-06-19 12:39 | Physician Advisory Note ---
Physician Advisor ProgressNote .: Pursuant to the plan for [facility], I have reviewed the medical record for this patient. Physician Advisor Statement: BEAUTIFUL documentation of concerns on adm/medical necessity, specific anemia, details of ADEN. CK
[2018-06-19] MEDS ORDERED: LIDOCAINE 2% INJ-PF (20 MG/ML) 10 ML AMPUL ONE (12:53)
[2018-06-19] MEDS ORDERED: MIDAZOLAM 2 MG/2 ML INJ ONE (12:53)
[2018-06-19] MEDS ORDERED: PROPOFOL INJ 200 MG/20 ML VIAL IV ONE (12:54)
[2018-06-19] MEDS ORDERED: PROMETHAZINE HCL INJ 25 MG/1 ML VIAL IV PRN ×2 (13:56)
[2018-06-19] MEDS ORDERED: ONDANSETRON HCL INJ/PF 4 MG/2 ML SDV IV PRN (13:56)
[2018-06-19] MEDS ORDERED: DIPHENHYDRAMINE HCL 50 MG/ML VIAL IV PRN (13:56)
[2018-06-19] MEDS ORDERED: FENTANYL CITRATE INJ/PF 100 MCG/2 ML AMPUL IV PRN ×3 (13:56)
[2018-06-19] MEDS ORDERED: MEPERIDINE HCL/PF INJ 25 MG/1 ML DISP.SYRIN IV PRN (13:56)
--- NOTE | 2018-06-19 14:07 | Operative Report ---
Operative Report DATE OF SURGERY: 06/19/18 Operative Report: The risks, benefits and alternatives of the procedure including risks of bleeding, perforation requiring surgery are explained to the patient in detail and informed consent is obtained. Patient was taken back to the operating room and placed in a left, lateral decubital position. Timeout was called. Propofol medication is administered. A rectal examination is done which did not reveal any masses, tears or fissures. An Olympus videoscope was inserted into the patient's rectum. It was then carefully advanced all the way to the cecum. Cecum was identified by the usual cecal valve as well as appendiceal office. The scope was then sequentially pulled back via the various segments of the colon including the ascending colon splenic flexure, descending colon as well as the rectosigmoid portions of the colon. Retroflexion maneuver was performed. The risks benefits and alternatives of the procedure explained to the patient in detail and informed consent is obtained.A GIF Olympus video scope was inserted into the patient's mouth and hypopharynx the esophagus is identified intubated and insufflated the scope was then advanced through the esophagus stomach and duodenum retroflexion maneuver is done the esophagus stomach and first and second portions of the duodenum examined PREOPERATIVE DIAGNOSIS: Hypercoagulable state, iron deficiency anemia. POSTOPERATIVE DIAGNOSIS: Diverticulosis. Small sessile rectal polyp that is ablated in situ, no tissue obtained despite snare polypectomy. Internal hemorrhoids. Nodular gastritis status post biopsy rule out Helicobacter pylori. Hiatal hernia OPERATION: Colonoscopy with snare polypectomy. EGD with biopsy SURGEON: AJIT INIGUEZ ANESTHESIA: LMAC TISSUE REMOVED OR ALTERED: As noted above. COMPLICATIONS: None. ESTIMATED BLOOD LOSS: None. INTRAOPERATIVE FINDINGS: As noted above. PROCEDURE: Patient tolerated procedure well. Patient is sent back to her room in good condition. We will wait on biopsies. Resume regular diet. Restart heparin in 2 hours. Another site of potential malignancy should be sought after. Resume regular diet Resume previous medications as well as previous activity level
[2018-06-19] MEDS: HEPARIN SODIUM,PORCINE/D5W 25,000 UNIT/250 ML RTUINJ IV PRN (16:20)
[2018-06-19 18:14] LABS: ALANINE AMINOTRANSFERASE 17 U/L (9-52); ALBUMIN 3.4 g/dL (3.5-5.0); ALKALINE PHOSPHATASE 59 U/L (38-126); ANION GAP 10 (5-19); ASPARTATE AMINO TRANSFERASE 15 U/L (14-36); BILIRUBIN,DIRECT 0.2 mg/dL (0.0-0.4); BILIRUBIN,TOTAL 0.3 mg/dL (0.2-1.3); BLOOD UREA NITROGEN 16 mg/dL (7-20); CALCIUM 10.5 mg/dL (8.4-10.2); CARBON DIOXIDE 21 mmol/L (22-30); CHLORIDE 109 mmol/L (98-107); GLUCOSE 96 mg/dL (75-110); POTASSIUM 5.3 mmol/L (3.6-5.0); SODIUM 140.1 mmol/L (137-145); TOTAL PROTEIN 7.3 g/dL (6.3-8.2)
[2018-06-19] MEDS: DONEPEZIL HCL 5 MG TABLET PO SCH (21:25)
--- NOTE | 2018-06-19 21:33 | PDOC PROGRESS REPORT ---
Subjective Progress Note for:: 06/19/18 Subjective:: Patient was seen by the bedside, she had colonoscopy and upper endoscopy today there was no mass lesion found. She will need outpatient capsule endoscopy, the IV heparin will be discontinued this be transitioned to p.o. Xarelto, she still have some mild kidney injury most likely prerenal ,start IV fluid therapy hopefully discharge tomorrow. Reason For Visit: DEEP VEIN THROMBOSIS OF THE RIGHT FEMORAL VEIN Physical Exam Vital Signs: Temp Pulse Resp BP Pulse Ox 98.5 F 72 20 144/76 H 99 06/19/18 19:58 06/19/18 19:58 06/19/18 19:58 06/19/18 19:58 06/19/18 19:58 Intake & Output 06/18/18 06/19/18 06/20/18 06:59 06:59 06:59 Intake Total 582 800 Output Total 0 2 Balance 582 798 Weight 68.7 kg 68 kg General appearance: PRESENT: no acute distress Eye exam: PRESENT: PERRLA Respiratory exam: PRESENT: clear to auscultation dionte Cardiovascular exam: PRESENT: +S1, +S2 GI/Abdominal exam: PRESENT: soft Neurological exam: PRESENT: alert Results Laboratory Results: 06/19/18 04:38 06/19/18 17:47 06/19/18 06/19/18 06/19/18 04:38 04:38 17:47 WBC 7.4 RBC 3.75 Hgb 9.4 L Hct 28.8 L MCV 77 L MCH 25.2 L MCHC 32.8 RDW 24.1 H Plt Count 201 Seg Neutrophils % 34.1 L Lymphocytes % 49.3 H Monocytes % 10.4 Eosinophils % 4.5 Basophils % 1.7 Absolute Neutrophils 2.5 Absolute Lymphocytes 3.7 Absolute Monocytes 0.8 Absolute Eosinophils 0.3 Absolute Basophils 0.1 Sodium 140.1 Potassium 5.4 H 5.3 H Chloride 109 H Carbon Dioxide 21 L Anion Gap 10 BUN 16 Creatinine 1.36 H Est GFR ( Amer) 46 L Est GFR (Non-Af Amer) 38 L Glucose 96 Calcium 10.5 H Total Bilirubin 0.3 AST 15 ALT 17 Alkaline Phosphatase 59 Total Protein 7.3 Albumin 3.4 L PTH Intact 06/19/18 17:47 WBC RBC Hgb Hct MCV MCH MCHC RDW Plt Count Seg Neutrophils % Lymphocytes % Monocytes % Eosinophils % Basophils % Absolute Neutrophils Absolute Lymphocytes Absolute Monocytes Absolute Eosinophils Absolute Basophils Sodium Potassium Chloride Carbon Dioxide Anion Gap BUN Creatinine Est GFR ( Amer) Est GFR (Non-Af Amer) Glucose Calcium Total Bilirubin AST ALT Alkaline Phosphatase Total Protein Albumin PTH Intact 69.1 H 06/17/18 06/17/18 06/18/18 21:00 21:00 02:24 Creatine Kinase 26 L 21 L Troponin I < 0.012 06/18/18 06/18/18 06/18/18 02:24 08:20 08:20 Creatine Kinase 24 L Troponin I < 0.012 < 0.012 Assessment & Plan - Diagnosis (1) Deep vein thrombosis of right femoral vein Qualifiers: Chronicity: acute Qualified Code(s): I82.411 - Acute embolism and thrombosis of right femoral vein Is this a current diagnosis for this admission?: Yes Plan: Stop IV heparin, start Xarelto (2) Iron deficiency anemia due to chronic blood loss Is this a current diagnosis for this admission?: Yes (3) Acute kidney injury Is this a current diagnosis for this admission?: Yes
[2018-06-19] MEDS: RIVAROXABAN 15 MG TABLET PO SCH (22:51)
[2018-06-20] MEDS: NORMAL SALINE 1000 ML 1,000 ML IV PRN ×2 (01:16→10:56)
[2018-06-20 05:24] LABS: ABSOLUTE BASOPHILS # (AUTO) 0.1 10^3/uL (0.0-0.2); ABSOLUTE EOSINOPHILS # (AUTO) 0.4 10^3/uL (0.0-0.6); ABSOLUTE LYMPHOCYTES (AUTO) 2.5 10^3/uL (0.5-4.7); ABSOLUTE MONOCYTES (AUTO) 0.6 10^3/uL (0.1-1.4); ABSOLUTE NEUT (AUTO) 2.8 10^3/uL (1.7-8.2); BASOPHILS % (AUTO) 0.8 % (0-2); EOSINOPHILS % (AUTO) 6.1 % (0-6); HEMATOCRIT 27.7 % (36.0-47.0); HEMOGLOBIN 9.1 g/dL (12.0-15.5); LYMPHOCYTES % (AUTO) 39.7 % (13-45); MEAN CORPUSCULAR HEMOGLOBIN 25.4 pg (27.0-33.4); MEAN CORPUSCULAR HGB CONC 32.8 g/dL (32.0-36.0); MEAN CORPUSCULAR VOLUME 77 fl (80-97); MONOCYTES % (AUTO) 9.1 % (3-13); PLATELET COUNT 190 10^3/uL (150-450); RED BLOOD COUNT 3.58 10^6/uL (3.72-5.28); RED CELL DISTRIBUTION WIDTH 24.4 % (11.5-14.0); SEGMENTED NEUTROPHILS % (AUTO) 44.3 % (42-78); TOTAL CELLS COUNTED % (AUTO) 100 %; WHITE BLOOD COUNT 6.4 10^3/uL (4.0-10.5)
[2018-06-20 06:05] LABS: HYPOCHROMASIA 2+
[2018-06-20 06:06] LABS: ANISOCYTOSIS 3+; BURR CELLS SLIGHT; HELMET CELLS SLIGHT; OVALOCYTES SLIGHT; POIKILOCYTOSIS 1+; TARGET CELLS SLIGHT; TEAR DROP CELLS SLIGHT
[2018-06-20 06:07] LABS: PLATELET COMMENT ADEQUATE
[2018-06-20 07:44] VITALS: BP 137/53
[2018-06-20 08:06] LABS: ALANINE AMINOTRANSFERASE 14 U/L (9-52); ALKALINE PHOSPHATASE 58 U/L (38-126); ANION GAP 10 (5-19); ASPARTATE AMINO TRANSFERASE 13 U/L (14-36); BILIRUBIN,DIRECT 0.3 mg/dL (0.0-0.4); BILIRUBIN,TOTAL 0.3 mg/dL (0.2-1.3); BLOOD UREA NITROGEN 16 mg/dL (7-20); CARBON DIOXIDE 20 mmol/L (22-30); CHLORIDE 111 mmol/L (98-107); GLUCOSE 112 mg/dL (75-110); POTASSIUM 5.3 mmol/L (3.6-5.0); SODIUM 141.4 mmol/L (137-145); TOTAL PROTEIN 6.6 g/dL (6.3-8.2)
[2018-06-20] MEDS: RIVAROXABAN 15 MG TABLET PO SCH (08:19)
--- NOTE | 2018-06-20 08:22 | PDOC PROGRESS REPORT ---
Subjective Progress Note for:: 06/20/18 Subjective:: patient tolerated her procedure well and family updated patient did have biopsies that were obtained but has not been reflected yet primary wants to consider capsule study of small bowel however since there has been no bleeding while on heparin, would decrease the likelihood of a small bowel lesion would in addition consider other more common sites of malignancy, i.e. [employer] INTELLIGENCE [employer]ISTANT, breast, melanoma etc Reason For Visit: DEEP VEIN THROMBOSIS OF THE RIGHT FEMORAL VEIN Physical Exam Vital Signs: Temp Pulse Resp BP Pulse Ox 98.6 F 65 16 137/53 H 97 06/20/18 07:26 06/20/18 07:26 06/20/18 07:26 06/20/18 07:26 06/20/18 07:26 Intake & Output 06/19/18 06/20/18 06/21/18 06:59 06:59 06:59 Intake Total 582 867 Output Total 0 2 Balance 582 865 Weight 68 kg 74.4 kg General appearance: PRESENT: no acute distress, thin Head exam: PRESENT: atraumatic, normocephalic Eye exam: PRESENT: EOMI, PERRLA. ABSENT: nystagmus, periorbital swelling, scleral icterus Mouth exam: PRESENT: moist, neck supple Neck exam: ABSENT: meningismus, tenderness, thyromegaly Respiratory exam: PRESENT: symmetrical, unlabored. ABSENT: tachypnea, wheezes Cardiovascular exam: PRESENT: RRR, +S1, +S2 GI/Abdominal exam: PRESENT: soft. ABSENT: rebound, rigid, tenderness Extremities exam: ABSENT: joint swelling Musculoskeletal exam: PRESENT: full ROM Neurological exam: PRESENT: oriented to time, oriented to situation, CN II-XII grossly intact Focused psych exam: ABSENT: restlessness Skin exam: PRESENT: normal color. ABSENT: mottled, pallor, urticaria, vesicles Results Laboratory Results: 06/20/18 04:40 06/20/18 04:40 06/19/18 06/19/18 06/20/18 17:47 17:47 04:40 WBC 6.4 RBC 3.58 L Hgb 9.1 L Hct 27.7 L MCV 77 L MCH 25.4 L MCHC 32.8 RDW 24.4 H Plt Count 190 Seg Neutrophils % 44.3 Lymphocytes % 39.7 Monocytes % 9.1 Eosinophils % 6.1 H Basophils % 0.8 Absolute Neutrophils 2.8 Absolute Lymphocytes 2.5 Absolute Monocytes 0.6 Absolute Eosinophils 0.4 Absolute Basophils 0.1 Sodium 140.1 Potassium 5.3 H Chloride 109 H Carbon Dioxide 21 L Anion Gap 10 BUN 16 Creatinine 1.36 H Est GFR ( Amer) 46 L Est GFR (Non-Af Amer) 38 L Glucose 96 Calcium 10.5 H Total Bilirubin 0.3 AST 15 ALT 17 Alkaline Phosphatase 59 Total Protein 7.3 Albumin 3.4 L PTH Intact 69.1 H 06/20/18 04:40 WBC RBC Hgb Hct MCV MCH MCHC RDW Plt Count Seg Neutrophils % Lymphocytes % Monocytes % Eosinophils % Basophils % Absolute Neutrophils Absolute Lymphocytes Absolute Monocytes Absolute Eosinophils Absolute Basophils Sodium 141.4 Potassium 5.3 H Chloride 111 H Carbon Dioxide 20 L Anion Gap 10 BUN 16 Creatinine 1.28 H Est GFR ( Amer) 49 L Est GFR (Non-Af Amer) 41 L Glucose 112 H Calcium 10.0 Total Bilirubin 0.3 AST 13 L ALT 14 Alkaline Phosphatase 58 Total Protein 6.6 Albumin 3.0 L PTH Intact 06/17/18 06/17/18 06/18/18 21:00 21:00 02:24 Creatine Kinase 26 L 21 L Troponin I < 0.012 06/18/18 06/18/18 06/18/18 02:24 08:20 08:20 Creatine Kinase 24 L Troponin I < 0.012 < 0.012 Assessment & Plan - Diagnosis (1) Deep vein thrombosis of right femoral vein Qualifiers: Chronicity: acute Qualified Code(s): I82.411 - Acute embolism and thrombosis of right femoral vein Is this a current diagnosis for this admission?: Yes Plan: being converted to oral there was no GI bleeding while she was on heparin (2) Anemia Qualifiers: Anemia type: iron deficiency Iron deficiency anemia type: chronic blood loss Qualified Code(s): D50.0 - Iron deficiency anemia secondary to blood loss (chronic) Is this a current diagnosis for this admission?: Yes Plan: iron deficiency, consider continue work up for malignancy there were biopsies obtained hopefully will be available soon - Time Time Spent with patient: 15-24 minutes
[2018-06-20] MEDS: DULOXETINE HCL 30 MG CAPSULE.DR PO SCH (10:52)
[2018-06-20] MEDS: CARVEDILOL 12.5 MG TABLET PO SCH (10:52)
--- NOTE | 2018-06-20 11:36 | PDOC DISCHARGE SUMMARY ---
General - Admit/Disc Date/PCP Admission Date/Primary Care Provider: 06/17/18 19:17 ADRIAN BLAKE MD Discharge Date: 06/20/18 - Discharge Diagnosis (1) Deep vein thrombosis of right femoral vein Is this a current diagnosis for this admission?: Yes (2) Iron deficiency anemia due to chronic blood loss Is this a current diagnosis for this admission?: Yes (3) Acute kidney injury Is this a current diagnosis for this admission?: Yes - Additional Information Resuscitation Status: Full Code Prescriptions: Linagliptin [Tradjenta] 5 mg PO DAILY #90 tablet Rivaroxaban [Xarelto 15 mg Tablet] 15 mg PO BIDBS #42 tablet Home Medications: Carvedilol [Coreg 25 mg Tablet] 25 mg PO BID 09/21/11 Donepezil HCl [Aricept] 10 mg PO QHS 05/27/18 Oxycodone HCl 15 mg PO Q6HP PRN 05/27/18 Prevagen 1 tab PO DAILY 05/27/18 Duloxetine HCl [Cymbalta] 60 mg PO DAILY 06/18/18 Linagliptin [Tradjenta] 5 mg PO DAILY #90 tablet 06/20/18 Rivaroxaban [Xarelto 15 mg Tablet] 15 mg PO BIDBS #42 tablet 06/20/18 History of Present Illness History of Present Illness: MILI SUAREZ is a 72 year old female,She was recently admitted for the management of septic shock due to E. coli UTI and septicemia. She also had iron deficiency anemia. On the last hospital admission she was offered colonoscopy but family refused infact she left A on this issue She came to the office for follow-up evaluation, she complained of nodular swellings in the lower extremities, I suspected thrombophlebitis I requested for a venous Doppler of the lower extremities. The venous Doppler was done today, there was incidental finding of deep vein thrombosis affecting the femoral vein distally and also the saphenous vein. She was admitted directly from outpatient to the hospital I am very concerned about this patient because she has iron deficiency anemia and she now also have deep vein thrombosis without any apparent cause for the deep vein thrombosis no recent long distance travel, it seems that she may have a hypercoagulable state I suspect malignancy, Especially with iron deficiency anemia and DVT with no apparent risk factors Hospital Course Hospital Course: She had colonoscopy done and also EGD no mass lesion was found, she was treated with IV heparin for DVT of the right femoral vein. The IV heparin was discontinued yesterday and is transitioned to p.o. Xarelto She has iron deficiency anemia no bleeding source was identified during this hospital admission Physical Exam Vital Signs: Temp Pulse Resp BP Pulse Ox 98.6 F 65 16 137/53 H 97 06/20/18 07:26 06/20/18 07:26 06/20/18 07:26 06/20/18 07:26 06/20/18 07:26 Intake & Output 06/19/18 06/20/18 06/21/18 06:59 06:59 06:59 Intake Total 582 867 967 Output Total 0 2 Balance 582 865 967 Weight 68 kg 74.4 kg General appearance: PRESENT: no acute distress, well-developed, well-nourished Head exam: PRESENT: atraumatic, normocephalic Eye exam: PRESENT: conjunctiva pink, EOMI, PERRLA Ear exam: PRESENT: normal external ear exam Mouth exam: PRESENT: moist, tongue midline Neck exam: PRESENT: full ROM Respiratory exam: PRESENT: clear to auscultation dionte Cardiovascular exam: PRESENT: RRR, +S1, +S2 Pulses: PRESENT: normal dorsalis pedis pul, +2 pedal pulses bilateral Vascular exam: PRESENT: normal capillary refill GI/Abdominal exam: PRESENT: normal bowel sounds, soft Rectal exam: PRESENT: deferred Neurological exam: PRESENT: alert, awake, oriented to person, oriented to place , oriented to time, oriented to situation, CN II-XII grossly intact Psychiatric exam: PRESENT: appropriate affect, normal mood Skin exam: PRESENT: dry, intact, warm Results Laboratory Results: 06/20/18 04:40 06/20/18 04:40 06/19/18 06/19/18 06/20/18 17:47 17:47 04:40 WBC 6.4 RBC 3.58 L Hgb 9.1 L Hct 27.7 L MCV 77 L MCH 25.4 L MCHC 32.8 RDW 24.4 H Plt Count 190 Seg Neutrophils % 44.3 Lymphocytes % 39.7 Monocytes % 9.1 Eosinophils % 6.1 H Basophils % 0.8 Absolute Neutrophils 2.8 Absolute Lymphocytes 2.5 Absolute Monocytes 0.6 Absolute Eosinophils 0.4 Absolute Basophils 0.1 Sodium 140.1 Potassium 5.3 H Chloride 109 H Carbon Dioxide 21 L Anion Gap 10 BUN 16 Creatinine 1.36 H Est GFR ( Amer) 46 L Est GFR (Non-Af Amer) 38 L Glucose 96 Calcium 10.5 H Total Bilirubin 0.3 AST 15 ALT 17 Alkaline Phosphatase 59 Total Protein 7.3 Albumin 3.4 L PTH Intact 69.1 H 06/20/18 04:40 WBC RBC Hgb Hct MCV MCH MCHC RDW Plt Count Seg Neutrophils % Lymphocytes % Monocytes % Eosinophils % Basophils % Absolute Neutrophils Absolute Lymphocytes Absolute Monocytes Absolute Eosinophils Absolute Basophils Sodium 141.4 Potassium 5.3 H Chloride 111 H Carbon Dioxide 20 L Anion Gap 10 BUN 16 Creatinine 1.28 H Est GFR ( Amer) 49 L Est GFR (Non-Af Amer) 41 L Glucose 112 H Calcium 10.0 Total Bilirubin 0.3 AST 13 L ALT 14 Alkaline Phosphatase 58 Total Protein 6.6 Albumin 3.0 L PTH Intact 06/17/18 06/17/18 06/18/18 21:00 21:00 02:24 Creatine Kinase 26 L 21 L Troponin I < 0.012 06/18/18 06/18/18 06/18/18 02:24 08:20 08:20 Creatine Kinase 24 L Troponin I < 0.012 < 0.012 Qualifiers - * PATIENT BEING DISCHARGED WITH ANY OF THE FOLLOWING DIAGNOSIS: No
== END 2018-06-20 12:10 | disposition home or self-care (01) | DRG 300 ==
LOC: 3W 19:17
PROVIDERS: ADMIT Internal Medicine; ATTEND Internal Medicine
PROC: 0DBP8ZZ Excision of Rectum, Via Natural or Artificial Opening Endoscopic (ICD-10-PCS; principal; 2018-06-19 13:00)
PROC: 0DB68ZX Excision of Stomach, Via Natural or Artificial Opening Endoscopic, Diagnostic (ICD-10-PCS; 2018-06-19 13:00)
DX: I82.411 Acute embolism and thrombosis of right femoral vein (principal); N17.9 Acute kidney failure, unspecified; D50.0 Iron deficiency anemia secondary to blood loss (chronic); I10 Essential (primary) hypertension; M19.90 Unspecified osteoarthritis, unspecified site; E11.9 Type 2 diabetes mellitus without complications; F03.90 Unspecified dementia, unspecified severity, without behavioral disturbance, psychotic disturbance, mood disturbance, and anxiety; K57.30 Diverticulosis of large intestine without perforation or abscess without bleeding; K62.1 Rectal polyp; K64.8 Other hemorrhoids; K29.70 Gastritis, unspecified, without bleeding; K44.9 Diaphragmatic hernia without obstruction or gangrene; Z53.29 Procedure and treatment not carried out because of patient's decision for other reasons; Z79.899 Other long term (current) drug therapy
CPT/HCPCS: 36415; 43239; 45380; 45385; 80048; 80053; 80061; 80076; 81001; 813; 82140; 82150; 82550; 82962; 83036; 83690; 83735; 83970; 84100; 84132; 84439; 84443; 84484; 85025; 85027; 85610; 85730; 88305; 88342; J1644; J2250; J2704; J3490; J7030

== ENCOUNTER → 2018-06-17 | Outpatient (CLI) | payer MEDICARE ==
--- NOTE | 2018-06-17 15:55 | RADIOLOGY REPORT (SQ) ---
EXAM DESCRIPTION: VENOUS BILATERAL LOWER COMPLETED DATE/TIME: 06/17/2018 2:08 pm REASON FOR STUDY: BLE SWELLING R22.43 LOCALIZED SWELLING, MASS AND LUMP, LOWER LIMB, BILATE COMPARISON: None. TECHNIQUE: Dynamic and static martinez scale and color images acquired of both lower extremity venous sy stems. Selected spectral images acquired with additional compression and augmentation maneuvers. Imag es stored on PACS. LIMITATIONS: None. FINDINGS: RIGHT LEG COMMON FEMORAL AND FEMORAL: Patent common femoral vein. Acute thrombus in the mid and distal femoral vein. POPLITEAL: Normal compression and augmentation. No visualized echogenic material on martinez scale. No de fects on color images. CALF VESSELS: Normal compression and augmentation. No visualized echogenic material on martinez scale. No defects on color image. GSV AND SSV: Acute thrombus in the distal greater saphenous vein. ANY DEEP VENOUS INSUFFICIENCY: Not evaluated. ANY EVIDENCE OF POPLITEAL CYST: No. OTHER: No other significant finding. LEFT LEG COMMON FEMORAL AND FEMORAL: Normal phasicity, compression and augmentation. No visualized echogenic m aterial on martinez scale. No defects on color images. POPLITEAL: Normal compression and augmentation. No visualized echogenic material on martinez scale. No de fects on color images. CALF VESSELS: Normal compression and augmentation. No visualized echogenic material on martinez scale. No defects on color images. GSV AND SSV: Normal compression. No visualized echogenic material on martinez scale. No defects on color images. ANY DEEP VENOUS INSUFFICIENCY: Not evaluated. ANY EVIDENCE POPLITEAL CYST: No. OTHER: No other significant finding. IMPRESSION: Acute thrombus right femoral vein and right greater saphenous vein. TECHNICAL DOCUMENTATION: JOB ID: [id number] [employer]- All Rights Reserved Reading location - IP/workstation name: [facility]
== END ==
LOC: SP 12:16
PROVIDERS: ATTEND Internal Medicine
DX: I82.411 Acute embolism and thrombosis of right femoral vein (principal); R22.43 Localized swelling, mass and lump, lower limb, bilateral
CPT/HCPCS: 93970

== ENCOUNTER 2018-12-21 12:52 | Inpatient (IN) | payer MEDICARE ==
[2018-12-21 13:32] LABS: ABSOLUTE EOSINOPHILS # (AUTO) 0.2 10^3/uL (0.0-0.6); ABSOLUTE LYMPHOCYTES (AUTO) 1.9 10^3/uL (0.5-4.7); ABSOLUTE MONOCYTES (AUTO) 0.5 10^3/uL (0.1-1.4); ABSOLUTE NEUT (AUTO) 3.1 10^3/uL (1.7-8.2); BASOPHILS % (AUTO) 0.5 % (0-2); HEMATOCRIT 28.8 % (36.0-47.0); HEMOGLOBIN 9.3 g/dL (12.0-15.5); LYMPHOCYTES % (AUTO) 33.3 % (13-45); MEAN CORPUSCULAR HEMOGLOBIN 25.2 pg (27.0-33.4); MEAN CORPUSCULAR HGB CONC 32.3 g/dL (32.0-36.0); MEAN CORPUSCULAR VOLUME 78 fl (80-97); MONOCYTES % (AUTO) 9.4 % (3-13); PLATELET COUNT 232 10^3/uL (150-450); RED BLOOD COUNT 3.69 10^6/uL (3.72-5.28); RED CELL DISTRIBUTION WIDTH 21.7 % (11.5-14.0); SEGMENTED NEUTROPHILS % (AUTO) 53.8 % (42-78); TOTAL CELLS COUNTED % (AUTO) 100 %; WHITE BLOOD COUNT 5.8 10^3/uL (4.0-10.5)
[2018-12-21 13:43] LABS: ALANINE AMINOTRANSFERASE < 6 U/L (9-52); ALBUMIN 4.2 g/dL (3.5-5.0); ALKALINE PHOSPHATASE 50 U/L (38-126); ANION GAP 6 (5-19); ASPARTATE AMINO TRANSFERASE 40 U/L (14-36); BILIRUBIN,DIRECT 0.3 mg/dL (0.0-0.4); BILIRUBIN,TOTAL 0.4 mg/dL (0.2-1.3); BLOOD UREA NITROGEN 36 mg/dL (7-20); CALCIUM 10.5 mg/dL (8.4-10.2); CARBON DIOXIDE 20 mmol/L (22-30); CHLORIDE 116 mmol/L (98-107); GLUCOSE 108 mg/dL (75-110); SODIUM 141.7 mmol/L (137-145); TOTAL PROTEIN 7.6 g/dL (6.3-8.2)
[2018-12-21 13:49] LABS: POTASSIUM 6.4 mmol/L (3.6-5.0)
[2018-12-21] MEDS ORDERED: NORMAL SALINE 1000 ML 1,000 ML IV ONE (13:50)
[2018-12-21] MEDS ORDERED: SODIUM BICARBONATE 8.4% INJ 50 MEQ/50 ML DISP.SYRIN IV ONE (13:51)
[2018-12-21] MEDS ORDERED: INSULIN REG, HUMAN 100 UNIT/ML 3 ML VIAL (PYX) IV ONE (13:51)
[2018-12-21] MEDS ORDERED: DEXTROSE 50%-WATER 25 GM/50 ML DISP.SYRIN IV ONE (13:51)
[2018-12-21] MEDS ORDERED: FUROSEMIDE INJ/PF 40 MG/4 ML SDV IV ONE (13:52)
[2018-12-21] MEDS ORDERED: CALCIUM GLUCONATE 1000 MG/10 ML INJ IV ONE (13:52)
--- NOTE | 2018-12-21 14:13 | ER Document Report ---
ED General - General Chief Complaint: Abnormal Lab Results Stated Complaint: ABNORMAL LABS Time Seen by Provider: 12/21/18 13:15 Notes: Patient is a 73-year-old female with history of chronic kidney disease that presents to the emergency department for chief complaint of elevated potassium as outpatient. Patient had blood work drawn this past , and was resulted and demonstrated a potassium of 6.9 according to the patient's family, this was done his routine blood work, her primary care advised the patient come to the emergency department to have this evaluated. Patient denies having any symptoms recently, denies nausea, vomiting, chest pain, shortness of breath, lightheadedness, dizziness, diarrhea, dysuria, hematuria. Past Medical History: Dementia, chronic kidney disease, diabetes mellitus, hypertension Past Surgical History: Denies surgical history Social History: Denies tobacco, alcohol or drug use. Family History: Reviewed and noncontributory for presenting illness Allergies: Reviewed, see documented allergy list. REVIEW OF SYSTEMS: Other than noted above, the 12 point review of systems was reviewed with the p atient and were negative, all pertinent findings are included in the HPI. PHYSICAL EXAMINATION: Vital signs reviewed, nursing noted reviewed. GENERAL: Well-appearing, well-nourished and in no acute distress. HEAD: Atraumatic, normocephalic. EYES: Eyes appear normal, extraocular movements intact, sclera anicteric, conjunctiva are normal. ENT: nares patent, oropharynx clear without exudates. Moist mucous membranes. NECK: Normal range of motion, supple without lymphadenopathy LUNGS: Breath sounds clear to auscultation bilaterally and equal. No wheezes rales or rhonchi. HEART: Regular rate and rhythm without murmurs ABDOMEN: Soft, nontender, normoactive bowel sounds. No rebound, guarding, or rigidity. No masses appreciated. EXTREMITIES: Nontender, good range of motion, no pitting or edema. NEUROLOGICAL: No focal neurological deficits. Moves all extremities spontaneously Motor and sensory grossly intact on exam. PSYCH: Normal mood, normal affect. SKIN: Warm, Dry, normal turgor, no rashes or lesions noted on exposed skin TRAVEL OUTSIDE OF THE [place] IN LAST 30 DAYS: No - Related Data Allergies/Adverse Reactions: No Known Allergies Allergy (Verified 12/21/18 12:53) Past Medical History - Social History Smoking Status: Never Smoker Family History: Reviewed & Not Pertinent Patient has suicidal ideation: No Patient has homicidal ideation: No - Past Medical History Cardiac Medical History: Reports: Hx Hypertension Denies: Hx Heart Attack Pulmonary Medical History: Denies: Hx Asthma Neurological Medical History: Denies: Hx Cerebrovascular Accident, Hx Seizures Endocrine Medical History: Reports: Hx Diabetes Mellitus Type 2 Renal/ Medical History: Denies: Hx Peritoneal Dialysis GI Medical History: Denies: Hx Hepatitis, Hx Hiatal Hernia, Hx Ulcer Musculoskeletal Medical History: Reports Hx Arthritis Psychiatric Medical History: Reports: Hx Dementia Denies: Hx Depression Infectious Medical History: Denies: Hx Hepatitis Past Surgical History: Reports: Hx Orthopedic Surgery. Denies: Hx Mastectomy, Hx Open Heart Surgery, Hx Pacemaker Physical Exam - Vital signs Vitals: Resp BP Pulse Ox 14 170/88 H 100 12/21/18 14:01 12/21/18 14:01 12/21/18 14:01 Course - Re-evaluation Re-evalutation: Patient seen and examined vital signs reviewed. Laboratory data and imaging were ordered as appropriate for the patient's presenting symptoms and complaint, with consideration of any critical or life threatening conditions that may be associated with their obtained history and exam as noted above. Patient was treated with IV fluids, and when results came back showed a potassium of 6.4, patient was given hyperkalemia cocktail including insulin, bicarb, and dextrose as well as IV calcium and IV Lasix 40 mg. Results were reviewed when available and demonstrated hyperkalemia of 6.4, with chronic kidney disease, creatinine was 1.8, which is around this patient's baseline. The patient was re-evaluated and was stable, asymptomatic Evaluation was most consistent with hyperkalemia in the setting of chronic kidney disease Results were discussed with the patient at this point after careful consideration I feel that that patient should be admitted to the hospital. This was discussed with the patient that it is in the best interest for their care to be admitted for further evaluation and management. Patient agreed with this plan of care. A call was placed to the admitted physician, Dr. Howell who graciously accepted the patient onto their service. *Note is created using voice recognition software and may contain spelling, syntax or grammatical errors. Laboratory 12/21/18 12/21/18 12/21/18 13:12 13:12 14:13 WBC 5.8 RBC 3.69 L Hgb 9.3 L Hct 28.8 L MCV 78 L MCH 25.2 L MCHC 32.3 RDW 21.7 H Plt Count 232 Seg Neutrophils % 53.8 Lymphocytes % 33.3 Monocytes % 9.4 Eosinophils % 3.0 Basophils % 0.5 Absolute Neutrophils 3.1 Absolute Lymphocytes 1.9 Absolute Monocytes 0.5 Absolute Eosinophils 0.2 Absolute Basophils 0.0 Sodium 141.7 Potassium 6.4 H* Chloride 116 H Carbon Dioxide 20 L Anion Gap 6 BUN 36 H Creatinine 1.84 H Est GFR ( Amer) 32 L Est GFR (Non-Af Amer) 27 L Glucose 108 POC Glucose 93 Calcium 10.5 H Total Bilirubin 0.4 Direct Bilirubin 0.3 Neonat Total Bilirubin Not Reportable Neonat Direct Bilirubin Not Reportable Neonat Indirect Bili Not Reportable AST 40 H ALT < 6 L Alkaline Phosphatase 50 Total Protein 7.6 Albumin 4.2 - Vital Signs Vital signs: Temp Pulse Resp BP Pulse Ox 14 170/88 H 100 12/21/18 14:01 12/21/18 14:01 12/21/18 14:01 - Laboratory Result Diagrams: 12/21/18 13:12 12/21/18 13:12 Laboratory results interpreted by me: 12/21/18 12/21/18 13:12 13:12 RBC 3.69 L Hgb 9.3 L Hct 28.8 L MCV 78 L MCH 25.2 L RDW 21.7 H Potassium 6.4 H* Chloride 116 H Carbon Dioxide 20 L BUN 36 H Creatinine 1.84 H Est GFR ( Amer) 32 L Est GFR (Non-Af Amer) 27 L Calcium 10.5 H AST 40 H ALT < 6 L Critical Care Note - Critical Care Note Total time excluding time spent on procedures (mins): 38 Comments: Critical care time 38 minutes exclusive from separate billable procedures for a patient requiring complex medical decision making, and high potential for clinical deterioration. In a patient with hyperkalemia requiring acute intervention to correct. Time spent obtaining history from patient or surrogate, discussions with consultants, development of treatment plan with patient or surrogate, evaluation of patient's response to treatment, examination of patient, ordering and performing treatments and interventions, ordering and rev iew of laboratory studies, re-evaluation of patient's condition, ordering and review of radiographic studies and review of old charts Discharge - Discharge Clinical Impression: Hyperkalemia, Renal insufficiency Anemia Qualifiers: Anemia type: unspecified type Qualified Code(s): D64.9 - Anemia, unspecified Condition: Stable Disposition: ADMITTED INPATIENT Admitting Provider: Sarahfl Unit Admitted: [facility]
[2018-12-21] MEDS ORDERED: NORMAL SALINE 1000 ML 1,000 ML IV PRN (15:07)
[2018-12-21] MEDS ORDERED: DEXTROSE 40% GEL 15 GM TUBE PO PRN ×2 (15:13)
[2018-12-21] MEDS ORDERED: DEXTROSE 50%-WATER 25 GM/50 ML DISP.SYRIN IV PRN ×2 (15:13)
[2018-12-21] MEDS ORDERED: GLUCAGON,HUMAN RECOMB 1 MG INJ IM PRN (15:13)
[2018-12-21 15:44] LABS: ABSOLUTE RETICS # 0.037 10^6/uL (0.028-0.122); RETICULOCYTE COUNT (AUTO) 0.96 % (0.66-2.85)
[2018-12-21 16:02] LABS: INTERNATIONAL RATION (INR) 1.05; PROTHROMBIN TIME 14.2 SEC (11.4-15.4)
[2018-12-21 16:11] LABS: ALANINE AMINOTRANSFERASE 16 U/L (9-52); ALBUMIN 3.8 g/dL (3.5-5.0); ALKALINE PHOSPHATASE 51 U/L (38-126); AMYLASE 116 U/L (30-110); ANION GAP 7 (5-19); ASPARTATE AMINO TRANSFERASE 14 U/L (14-36); BILIRUBIN,DIRECT 0.2 mg/dL (0.0-0.4); BILIRUBIN,TOTAL 0.3 mg/dL (0.2-1.3); BLOOD UREA NITROGEN 34 mg/dL (7-20); CALCIUM 10.7 mg/dL (8.4-10.2); CARBON DIOXIDE 22 mmol/L (22-30); CHLORIDE 115 mmol/L (98-107); LIPASE 108.1 U/L (23-300); PHOSPHORUS 3.2 mg/dL (2.5-4.5); POTASSIUM 5.8 mmol/L (3.6-5.0); SODIUM 143.6 mmol/L (137-145); TOTAL PROTEIN 6.8 g/dL (6.3-8.2)
[2018-12-21 16:12] LABS: CREATINE KINASE 41 U/L (30-135); IRON(TIBC) 43.3 ug/dL (37-170)
[2018-12-21 16:13] LABS: GLUCOSE 53 mg/dL (75-110)
[2018-12-21 16:23] LABS: CREATINE KINASE MB 0.27 ng/mL (<4.55)
[2018-12-21 16:27] LABS: FREE T4 (FREE THYROXINE) 1.39 ng/dL (0.78-2.19)
[2018-12-21 16:29] LABS: TROPONIN I < 0.012 ng/mL
[2018-12-21 16:41] LABS: THYROID STIMULATING HORMONE 2.53 uIU/mL (0.47-4.68)
[2018-12-21] MEDS: INSULIN LISPRO 100 UNIT/ML 3 ML VIAL SUBCUT SCH ×2 (16:48→23:28)
[2018-12-21] MEDS ORDERED: IRON SUCROSE COMPLEX INJ/PF 100 MG/5 ML SDV IV ONE ×2 (17:00→17:04)
--- NOTE | 2018-12-21 17:07 | RADIOLOGY REPORT (SQ) ---
EXAM DESCRIPTION: U/S RETROPERITON (RENAL/AORTA) COMPLETED DATE/TIME: 12/21/2018 4:37 pm REASON FOR STUDY: acute kidney injury COMPARISON: 05/27/2018. TECHNIQUE: Dynamic and static grayscale images acquired of the kidneys and bladder and recorded on P ACS. Additional selected color Doppler and spectral images recorded. LIMITATIONS: None. FINDINGS: RIGHT KIDNEY: The right kidney measures 8.3 x 4.4 x 5.3 cm demonstrating increased echogen icity without hydronephrosis. Doppler flow to the right kidney noted. LEFT KIDNEY: The left kidney measures 9.4 x 4.6 x 5.2 cm demonstrating increased echogenicity. No h ydronephrosis. Doppler flow to the left kidney noted. BLADDER: No abnormality. IMPRESSION: Findings consistent chronic medical renal disease. TECHNICAL DOCUMENTATION: JOB ID: [id number] [employer]- All Rights Reserved Reading location - IP/workstation name: [email or web address]
[2018-12-21 17:22] LABS: FOLATE > 20.00 ng/mL (>2.76)
[2018-12-21] MEDS ORDERED: (PENDING PHARMACY ID) (Memantine Hcl [Memantine Hcl Er] 28 MG) PO SCH (18:15)
[2018-12-21 19:44] LABS: ARTERIAL BLOOD BASE EXCESS -6.1 mmol/L; ARTERIAL BLOOD O2 SATURATION 96.9 % (94-98); ARTERIAL BLOOD PCO2 36.4 mmHg (35-45); ARTERIAL BLOOD PH 7.34 (7.35-7.45); ARTERIAL BLOOD TOTAL CO2 20.1 mmol/L (21-25)
[2018-12-21 19:45] LABS: ARTERIAL BLOOD FIO2 ROOM AIR
[2018-12-21 21:51] LABS: CREATINE KINASE MB 0.37 ng/mL (<4.55)
[2018-12-21 21:53] LABS: TROPONIN I < 0.012 ng/mL
[2018-12-21] MEDS: DONEPEZIL HCL 5 MG TABLET PO SCH (22:11)
[2018-12-21] MEDS: SODIUM POLYSTYRENE SULFONATE 15 GM/60 ML PO SCH (22:12)
[2018-12-21 23:17] LABS: UR PRO/CREAT RATIO RESULT 1.4 mg/mg (0.0-0.2); URINE CREATININE 63.3 mg/dL (15-278)
--- NOTE | 2018-12-21 23:51 | EKG REPORT ---
SEVERITY:- ABNORMAL ECG - SINUS RHYTHM INFERIOR INFARCT, OLD CONSIDER ANTERIOR INFARCT : Confirmed by: Gaviota Christian 21-Dec-2018 23:50:51
[2018-12-22 00:13] LABS: URINE AMPHETAMINES SCREEN NEGATIVE; URINE BARBITURATES SCREEN NEGATIVE; URINE BENZODIAZEPINES SCREEN NEGATIVE; URINE COCAINE SCREEN NEGATIVE; URINE MARIJUANA (THC) SCREEN NEGATIVE; URINE METHADONE SCREEN NEGATIVE; URINE PHENCYCLIDINE SCREEN NEGATIVE
[2018-12-22] MEDS: OXYCODONE HCL IR 5 MG TABLET PO PRN (02:34)
[2018-12-22 03:38] LABS: ABSOLUTE EOSINOPHILS # (AUTO) 0.2 10^3/uL (0.0-0.6); ABSOLUTE MONOCYTES (AUTO) 0.8 10^3/uL (0.1-1.4); ABSOLUTE NEUT (AUTO) 2.7 10^3/uL (1.7-8.2); BASOPHILS % (AUTO) 0.5 % (0-2); EOSINOPHILS % (AUTO) 3.4 % (0-6); HEMATOCRIT 25.8 % (36.0-47.0); HEMOGLOBIN 8.3 g/dL (12.0-15.5); LYMPHOCYTES % (AUTO) 43.4 % (13-45); MEAN CORPUSCULAR HGB CONC 32.2 g/dL (32.0-36.0); MEAN CORPUSCULAR VOLUME 78 fl (80-97); MONOCYTES % (AUTO) 12.4 % (3-13); PLATELET COUNT 188 10^3/uL (150-450); RED BLOOD COUNT 3.33 10^6/uL (3.72-5.28); RED CELL DISTRIBUTION WIDTH 21.3 % (11.5-14.0); SEGMENTED NEUTROPHILS % (AUTO) 40.3 % (42-78); TOTAL CELLS COUNTED % (AUTO) 100 %; WHITE BLOOD COUNT 6.8 10^3/uL (4.0-10.5)
[2018-12-22 04:40] LABS: CREATINE KINASE MB 0.28 ng/mL (<4.55); TROPONIN I < 0.012 ng/mL
[2018-12-22] MEDS: INSULIN LISPRO 100 UNIT/ML 3 ML VIAL SUBCUT SCH ×4 (08:21→21:33)
[2018-12-22 09:05] LABS: ALANINE AMINOTRANSFERASE 10 U/L (9-52); ALBUMIN 3.5 g/dL (3.5-5.0); ALKALINE PHOSPHATASE 46 U/L (38-126); ANION GAP 8 (5-19); ASPARTATE AMINO TRANSFERASE 16 U/L (14-36); BILIRUBIN,DIRECT 0.2 mg/dL (0.0-0.4); BILIRUBIN,TOTAL 0.2 mg/dL (0.2-1.3); BLOOD UREA NITROGEN 36 mg/dL (7-20); CALCIUM 10.6 mg/dL (8.4-10.2); CARBON DIOXIDE 19 mmol/L (22-30); CHLORIDE 118 mmol/L (98-107); GLUCOSE 108 mg/dL (75-110); POTASSIUM 5.9 mmol/L (3.6-5.0); SODIUM 144.8 mmol/L (137-145); TOTAL PROTEIN 6.5 g/dL (6.3-8.2)
[2018-12-22] MEDS ORDERED: SODIUM POLYSTYRENE SULFONATE 15 GM/60 ML PO ONE ×2 (16:57→18:45)
[2018-12-22] MEDS: SODIUM POLYSTYRENE SULFONATE 15 GM/60 ML PO SCH (17:25)
[2018-12-22 19:14] LABS: ANION GAP 7 (5-19); BLOOD UREA NITROGEN 33 mg/dL (7-20); CALCIUM 10.4 mg/dL (8.4-10.2); CARBON DIOXIDE 22 mmol/L (22-30); CHLORIDE 112 mmol/L (98-107); GLUCOSE 106 mg/dL (75-110); POTASSIUM 5.4 mmol/L (3.6-5.0)
--- NOTE | 2018-12-22 19:21 | PDOC H&P ---
History of Present Illness Admission Date/PCP: 12/21/18 14:19 ADRIAN BLAKE MD History of Present Illness: MILI SUAREZ is a 73 year old female,She has underlying dementia, she was in the office on Saturday for follow-up evaluation, part of the follow-up evaluation, comprehensive metabolic panel was done, serum potassium was 6.4, serum creatinine was 1.84, the estimated GFR was 32, I was particularly concerned about the serum potassium, I called patient from home to go to the emergency room for the management of the hyperkalemia. In the emergency room the repeat blood work that was done was consistent with the blood work that was done in the office, the ED physician felt patient needed to be admitted for the management of the hyperkalemia with elevated serum creatinine that suggest acute kidney injury. A kidney ultrasound was done, it was consistent with chronic medical disease with increased echogenicity of the kidney on ultrasound there was no ultrasound evidence of hydronephrosis to suggest post renal azotemia. Patient is not very compliant, because of her dementia, she depends on family to bring her to the office for follow-up evaluation .she does not follow up regularly in the office. She also have iron deficiency anemia the last time she was admitted to this hospital she underwent colonoscopy and EGD there was no pathology demonstrated to explain the iron deficiency anemia, she needed capsule endoscopy outpatient but she never follow-up patient to obtain this procedure. Past Medical History Cardiac Medical History: Reports: Hypertension Endocrine Medical History: Reports: Diabetes Mellitus Type 2 Musculoskeltal Medical History: Reports: Arthritis Psychiatric Medical History: Reports: Dementia Past Surgical History Past Surgical History: Reports: Orthopedic Surgery Social History Smoking Status: Never Smoker Frequency of Alcohol Use: None Hx Recreational Drug Use: No Drugs: None Hx Prescription Drug Abuse: No Family History Family History: Reviewed & Not Pertinent Parental Family History Reviewed: Yes Children Family History Reviewed: Yes Sibling(s) Family History Reviewed.: Yes Medication/Allergy Home Medications: Carvedilol [Coreg 25 mg Tablet] 25 mg PO BID 09/21/11 Donepezil HCl [Aricept] 10 mg PO QHS 05/27/18 Oxycodone HCl 15 mg PO Q6HP PRN 05/27/18 Linagliptin [Tradjenta] 5 mg PO DAILY #90 tablet 06/20/18 Losartan Potassium [Cozaar 100 mg Tablet] 100 mg PO DAILY 12/21/18 Megestrol Acetate 40 mg PO BID 12/21/18 Memantine HCl [Memantine HCl ER] 28 mg PO DAILY 12/21/18 Metformin HCl 1,000 mg PO BID 12/21/18 Pravastatin Sodium [Pravachol] 40 mg PO DAILY 12/21/18 Allergies/Adverse Reactions: No Known Allergies Allergy (Verified 12/21/18 12:53) Review of Systems Constitutional: ABSENT: chills, fever(s), headache(s), weight gain, weight loss Eyes: ABSENT: visual disturbances Ears: ABSENT: hearing changes Cardiovascular: ABSENT: chest pain, dyspnea on exertion, edema, orthropnea, palpitations Respiratory: ABSENT: cough, hemoptysis Gastrointestinal: ABSENT: abdominal pain, constipation, diarrhea, hematemesis, hematochezia, nausea, vomiting Genitourinary: ABSENT: dysuria, hematuria Musculoskeletal: ABSENT: joint swelling Integumentary: ABSENT: rash, wounds Neurological: ABSENT: abnormal gait, abnormal speech, confusion, dizziness, focal weakness, syncope Psychiatric: ABSENT: anxiety, depression, homidical ideation, suicidal ideation Endocrine: ABSENT: cold intolerance, heat intolerance, menstrual abnormalities, polydipsia, polyuria Hematologic/Lymphatic: ABSENT: easy bleeding, easy bruising, lymphadenopathy Physical Exam Vital Signs: Temp Pulse Resp BP Pulse Ox 98.4 F 101 H 18 155/84 H 100 12/22/18 15:01 12/22/18 15:01 12/22/18 15:01 12/22/18 15:01 12/22/18 15:01 Intake & Output 12/21/18 12/22/18 12/23/18 06:59 06:59 06:59 Intake Total 400 725 Balance 400 725 Weight 74.6 kg General appearance: PRESENT: no acute distress, well-developed, well-nourished Head exam: PRESENT: atraumatic, normocephalic Eye exam: PRESENT: PERRLA Ear exam: PRESENT: normal external ear exam Mouth exam: PRESENT: moist, tongue midline Neck exam: PRESENT: full ROM Respiratory exam: PRESENT: clear to auscultation dionte Cardiovascular exam: PRESENT: RRR, +S1, +S2 Vascular exam: PRESENT: normal capillary refill GI/Abdominal exam: PRESENT: normal bowel sounds, soft Rectal exam: PRESENT: deferred Musculoskeletal exam: PRESENT: deformity, other - Arthropathy of both knees Neurological exam: PRESENT: alert, CN II-XII grossly intact Skin exam: PRESENT: dry, intact, warm Results Laboratory Results: 12/22/18 03:28 12/21/18 12/22/18 12/22/18 17:05 03:28 03:28 WBC 6.8 RBC 3.33 L Hgb 8.3 L Hct 25.8 L MCV 78 L MCH 25.0 L MCHC 32.2 RDW 21.3 H Plt Count 188 Seg Neutrophils % 40.3 L Lymphocytes % 43.4 Monocytes % 12.4 Eosinophils % 3.4 Basophils % 0.5 Absolute Neutrophils 2.7 Absolute Lymphocytes 3.0 Absolute Monocytes 0.8 Absolute Eosinophils 0.2 Absolute Basophils 0.0 Carbonic Acid 1.10 HCO3/H2CO3 Ratio 17:1 ABG pH 7.34 L ABG pCO2 36.4 ABG pO2 95.0 ABG HCO3 19.0 L ABG O2 Saturation 96.9 ABG Base Excess -6.1 FiO2 ROOM AIR Sodium 144.8 Potassium 5.9 H Chloride 118 H Carbon Dioxide 19 L Anion Gap 8 BUN 36 H Creatinine 1.95 H Est GFR ( Amer) 30 L Est GFR (Non-Af Amer) 25 L Glucose 108 Calcium 10.6 H Total Bilirubin 0.2 AST 16 ALT 10 Alkaline Phosphatase 46 Total Protein 6.5 Albumin 3.5 12/21/18 12/21/18 12/21/18 15:35 15:35 15:35 Creatine Kinase 41 CK-MB (CK-2) 0.27 Troponin I < 0.012 NT-Pro-B Natriuret Pep 426 12/21/18 12/21/18 12/22/18 21:05 21:05 03:28 Creatine Kinase 45 44 CK-MB (CK-2) 0.37 Troponin I < 0.012 NT-Pro-B Natriuret Pep 12/22/18 03:28 Creatine Kinase CK-MB (CK-2) 0.28 Troponin I < 0.012 NT-Pro-B Natriuret Pep Impressions: Renal Ultrasound 12/21/18 00:00 IMPRESSION: Findings consistent chronic medical renal disease. Assessment & Plan - Diagnosis (1) Acute kidney injury Is this a current diagnosis for this admission?: Yes Plan: The kidney ultrasound suggests chronic medical disease,She probably have acute k idney injury on underlying chronic kidney disease,there could also be a prenal component (2) Hyperkalemia Is this a current diagnosis for this admission?: Yes Plan: Patient is given medication including calcium gluconate, 50% dextrose, Kayexalate.The hyperkalemia could be from acute kidney injury or from medication (3) Dementia Qualifiers: Dementia type: Alzheimer's disease Alzheimer's disease onset: late-onset Dementia behavioral disturbance: without behavioral disturbance Qualified Code(s): G30.1 - Alzheimer's disease with late onset; F02.80 - Dementia in other diseases classified elsewhere without behavioral disturbance Is this a current diagnosis for this admission?: Yes (4) Type 2 diabetes mellitus Qualifiers: Diabetes mellitus residential insulin use: without exterminator use Diabetes mellitus complication status: with neurologic complications Diabetes mellitus complication detail: with polyneuropathy Qualified Code(s): E11.42 - Type 2 diabetes mellitus with diabetic polyneuropathy Is this a current diagnosis for this admission?: Yes (5) Iron deficiency anemia Qualifiers: Iron deficiency anemia type: chronic blood loss Qualified Code(s): D50.0 - Iron deficiency anemia secondary to blood loss (chronic) Is this a current diagnosis for this admission?: Yes Plan: [place] IV Venofer
--- NOTE | 2018-12-22 19:37 | PDOC PROGRESS REPORT ---
Subjective Progress Note for:: 12/22/18 Subjective:: Patient seen by the bedside, she refused IV access Reason For Visit: ACUTE KIDNEY INJURY,HYPERKALEMIA,IRON DEFICIENCY Physical Exam Vital Signs: Temp Pulse Resp BP Pulse Ox 98.4 F 101 H 18 155/84 H 100 12/22/18 15:01 12/22/18 15:01 12/22/18 15:01 12/22/18 15:01 12/22/18 15:01 Intake & Output 12/21/18 12/22/18 12/23/18 06:59 06:59 06:59 Intake Total 400 725 Balance 400 725 Weight 74.6 kg General appearance: PRESENT: no acute distress Eye exam: PRESENT: PERRLA Respiratory exam: PRESENT: clear to auscultation dionte Cardiovascular exam: PRESENT: +S1, +S2 GI/Abdominal exam: PRESENT: soft Neurological exam: PRESENT: alert, CN II-XII grossly intact Results Laboratory Results: 12/22/18 03:28 12/22/18 18:20 12/21/18 12/22/18 12/22/18 17:05 03:28 03:28 WBC 6.8 RBC 3.33 L Hgb 8.3 L Hct 25.8 L MCV 78 L MCH 25.0 L MCHC 32.2 RDW 21.3 H Plt Count 188 Seg Neutrophils % 40.3 L Lymphocytes % 43.4 Monocytes % 12.4 Eosinophils % 3.4 Basophils % 0.5 Absolute Neutrophils 2.7 Absolute Lymphocytes 3.0 Absolute Monocytes 0.8 Absolute Eosinophils 0.2 Absolute Basophils 0.0 Carbonic Acid 1.10 HCO3/H2CO3 Ratio 17:1 ABG pH 7.34 L ABG pCO2 36.4 ABG pO2 95.0 ABG HCO3 19.0 L ABG O2 Saturation 96.9 ABG Base Excess -6.1 FiO2 ROOM AIR Sodium 144.8 Potassium 5.9 H Chloride 118 H Carbon Dioxide 19 L Anion Gap 8 BUN 36 H Creatinine 1.95 H Est GFR ( Amer) 30 L Est GFR (Non-Af Amer) 25 L Glucose 108 Calcium 10.6 H Total Bilirubin 0.2 AST 16 ALT 10 Alkaline Phosphatase 46 Total Protein 6.5 Albumin 3.5 12/22/18 18:20 WBC RBC Hgb Hct MCV MCH MCHC RDW Plt Count Seg Neutrophils % Lymphocytes % Monocytes % Eosinophils % Basophils % Absolute Neutrophils Absolute Lymphocytes Absolute Monocytes Absolute Eosinophils Absolute Basophils Carbonic Acid HCO3/H2CO3 Ratio ABG pH ABG pCO2 ABG pO2 ABG HCO3 ABG O2 Saturation ABG Base Excess FiO2 Sodium 141.0 Potassium 5.4 H Chloride 112 H Carbon Dioxide 22 Anion Gap 7 BUN 33 H Creatinine 1.85 H Est GFR ( Amer) 32 L Est GFR (Non-Af Amer) 27 L Glucose 106 Calcium 10.4 H Total Bilirubin AST ALT Alkaline Phosphatase Total Protein Albumin 12/21/18 12/21/18 12/21/18 15:35 15:35 15:35 Creatine Kinase 41 CK-MB (CK-2) 0.27 Troponin I < 0.012 NT-Pro-B Natriuret Pep 426 12/21/18 12/21/18 12/22/18 21:05 21:05 03:28 Creatine Kinase 45 44 CK-MB (CK-2) 0.37 Troponin I < 0.012 NT-Pro-B Natriuret Pep 12/22/18 03:28 Creatine Kinase CK-MB (CK-2) 0.28 Troponin I < 0.012 NT-Pro-B Natriuret Pep Impressions: Renal Ultrasound 12/21/18 00:00 IMPRESSION: Findings consistent chronic medical renal disease. Assessment & Plan - Diagnosis (1) Acute kidney injury Is this a current diagnosis for this admission?: Yes Plan: Slight improvement the kidney injury, patient refused IV fluid (2) Hyperkalemia Is this a current diagnosis for this admission?: Yes Plan: The potassium is elevated, she would require more Kayexalate (3) Dementia Qualifiers: Dementia type: Alzheimer's disease Alzheimer's disease onset: late-onset Dementia behavioral disturbance: without behavioral disturbance Qualified Code(s): G30.1 - Alzheimer's disease with late onset; F02.80 - Dementia in other diseases classified elsewhere without behavioral disturbance Is this a current diagnosis for this admission?: Yes (4) Type 2 diabetes mellitus 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
[2018-12-22] MEDS ORDERED: (PENDING PHARMACY ID) (Linagliptin [Tradjenta] 5 MG) PO SCH (20:15)
[2018-12-22] MEDS ORDERED: (PENDING PHARMACY ID) (Pravastatin Sodium [Pravachol] 40 MG) PO SCH (20:15)
[2018-12-22] MEDS: CARVEDILOL 12.5 MG TABLET PO SCH (21:28)
[2018-12-22] MEDS: DONEPEZIL HCL 5 MG TABLET PO SCH (21:28)
[2018-12-22] MEDS ORDERED: ATORVASTATIN CALCIUM 10 MG TABLET PO SCH (22:00)
[2018-12-23] MEDS: OXYCODONE HCL IR 5 MG TABLET PO PRN (06:17)
[2018-12-23 06:47] LABS: ABSOLUTE BASOPHILS # (AUTO) 0.1 10^3/uL (0.0-0.2); ABSOLUTE EOSINOPHILS # (AUTO) 0.2 10^3/uL (0.0-0.6); ABSOLUTE LYMPHOCYTES (AUTO) 2.8 10^3/uL (0.5-4.7); ABSOLUTE MONOCYTES (AUTO) 0.7 10^3/uL (0.1-1.4); ABSOLUTE NEUT (AUTO) 3.3 10^3/uL (1.7-8.2); BASOPHILS % (AUTO) 0.9 % (0-2); EOSINOPHILS % (AUTO) 2.9 % (0-6); HEMATOCRIT 29.1 % (36.0-47.0); HEMOGLOBIN 9.3 g/dL (12.0-15.5); LYMPHOCYTES % (AUTO) 38.8 % (13-45); MEAN CORPUSCULAR HEMOGLOBIN 24.9 pg (27.0-33.4); MEAN CORPUSCULAR VOLUME 78 fl (80-97); MONOCYTES % (AUTO) 10.3 % (3-13); PLATELET COUNT 223 10^3/uL (150-450); RED BLOOD COUNT 3.75 10^6/uL (3.72-5.28); SEGMENTED NEUTROPHILS % (AUTO) 47.1 % (42-78); TOTAL CELLS COUNTED % (AUTO) 100 %; WHITE BLOOD COUNT 7.1 10^3/uL (4.0-10.5)
[2018-12-23 09:39] LABS: ALANINE AMINOTRANSFERASE 14 U/L (9-52); ALBUMIN 4.1 g/dL (3.5-5.0); ALKALINE PHOSPHATASE 54 U/L (38-126); ANION GAP 10 (5-19); ASPARTATE AMINO TRANSFERASE 31 U/L (14-36); BILIRUBIN,DIRECT 0.1 mg/dL (0.0-0.4); BILIRUBIN,TOTAL 0.2 mg/dL (0.2-1.3); BLOOD UREA NITROGEN 29 mg/dL (7-20); CALCIUM 10.3 mg/dL (8.4-10.2); CARBON DIOXIDE 22 mmol/L (22-30); CHLORIDE 111 mmol/L (98-107); GLUCOSE 94 mg/dL (75-110); POTASSIUM 4.5 mmol/L (3.6-5.0); SODIUM 142.8 mmol/L (137-145); TOTAL PROTEIN 7.5 g/dL (6.3-8.2)
[2018-12-23] MEDS: INSULIN LISPRO 100 UNIT/ML 3 ML VIAL SUBCUT SCH (09:40)
[2018-12-23] MEDS: CARVEDILOL 12.5 MG TABLET PO SCH (09:44)
[2018-12-23] MEDS ORDERED: SITAGLIPTIN PHOSPHATE 25 MG TABLET PO SCH (10:00)
[2018-12-23 10:01] VITALS: BP 167/67
[2018-12-23 16:38] LABS: ALBUMIN 2 3.4 g/dL (2.9-4.4); ALPHA-2-GLOBULIN 2 0.8 g/dL (0.4-1.0); GAMMA GLOBULIN 1.5 g/dL (0.4-1.8); GLOBULIN TOTAL 3.5 g/dL (2.2-3.9); MONOCLONAL SPIKE Not Observed g/dL (Not Observ); PROTEIN TOTAL SERUM 6.9 g/dL (6.0-8.5)
--- NOTE | 2018-12-23 17:34 | PDOC DISCHARGE SUMMARY ---
General - Admit/Disc Date/PCP Admission Date/Primary Care Provider: 12/21/18 14:19 ADRIAN BLAKE MD Discharge Date: 12/23/18 - Discharge Diagnosis (1) Acute kidney injury Is this a current diagnosis for this admission?: Yes (2) Hyperkalemia Is this a current diagnosis for this admission?: Yes (3) Dementia Is this a current diagnosis for this admission?: Yes (4) Type 2 diabetes mellitus Is this a current diagnosis for this admission?: Yes (5) Iron deficiency anemia Is this a current diagnosis for this admission?: Yes (6) Secondary hyperparathyroidism of renal origin Is this a current diagnosis for this admission?: Yes (7) Diabetes mellitus with diabetic nephropathy Is this a current diagnosis for this admission?: Yes - Additional Information Discharge Diet: Cardiac, Diabetic Discharge Activity: Activity As Tolerated, Balance Activity w/Rest, Energy Conservation Prescriptions: Calcitriol 0.5 mcg PO DAILY #90 capsule Ergocalciferol (Vitamin D2) [Drisdol 50,000 unit (1.25MG) Capsule] 50,000 unit PO Q7D #12 capsule Home Medications: Carvedilol [Coreg 25 mg Tablet] 25 mg PO BID 09/21/11 Donepezil HCl [Aricept] 10 mg PO QHS 05/27/18 Oxycodone HCl 15 mg PO Q6HP PRN 05/27/18 Linagliptin [Tradjenta] 5 mg PO DAILY #90 tablet 06/20/18 Memantine HCl [Memantine HCl ER] 28 mg PO DAILY 12/21/18 Pravastatin Sodium [Pravachol] 40 mg PO DAILY 12/21/18 Calcitriol 0.5 mcg PO DAILY #90 capsule 12/23/18 Ergocalciferol (Vitamin D2) [Drisdol 50,000 unit (1.25MG) Capsule] 50,000 unit PO Q7D #12 capsule 12/23/18 History of Present Illness History of Present Illness: MILI SUAREZ is a 73 year old female,She has underlying dementia, she was in the office on Saturday for follow-up evaluation, part of the follow-up evaluation, comprehensive metabolic panel was done, serum potassium was 6.4, serum creatinine was 1.84, the estimated GFR was 32, I was particularly concerned about the serum potassium, I called patient from home to go to the emergency room for the management of the hyperkalemia. In the emergency room the repeat blood work that was done was consistent with the blood work that was done in the office, the ED physician felt patient needed to be admitted for the management of the hyperkalemia with elevated serum creatinine that suggest acute kidney injury. A kidney ultrasound was done, it was consistent with chronic medical disease with increased echogenicity of the kidney on ultrasound there was no ultrasound evidence of hydronephrosis to suggest post renal azotemia. Patient is not very compliant, because of her dementia, she depends on family to bring h er to the office for follow-up evaluation .she does not follow up regularly in the office. She also have iron deficiency anemia the last time she was admitted to this hospital she underwent colonoscopy and EGD there was no pathology demonstrated to explain the iron deficiency anemia, she needed capsule endoscopy outpatient but she never follow-up patient to obtain this procedure. Hospital Course Hospital Course: Patient was admitted for the management of hyperkalemia in the setting of diabetes nephropathy. She has chronic kidney disease, kidney ultrasound was done, demonstrated chronic medical renal disease, the hyperkalemia was treated with 50% dextrose, regular insulin, calcium gluconate and also Kayexalate. She was taken of losartan, because of the hyperkalemia, metformin because of the nephropathy. She has underlying dementia with period of confusion. Physical Exam Vital Signs: Temp Pulse Resp BP Pulse Ox 98.2 F 98 16 167/67 H 99 12/23/18 09:57 12/23/18 09:57 12/23/18 09:57 12/23/18 09:57 12/23/18 09:57 Intake & Output 12/22/18 12/23/18 12/24/18 06:59 06:59 06:59 Intake Total 400 1187 Balance 400 1187 Weight 74.6 kg 72.4 kg General appearance: PRESENT: no acute distress Head exam: PRESENT: atraumatic, normocephalic Eye exam: PRESENT: PERRLA Mouth exam: PRESENT: moist, tongue midline Neck exam: PRESENT: full ROM Respiratory exam: PRESENT: clear to auscultation dionte Cardiovascular exam: PRESENT: RRR, +S1, +S2 Vascular exam: PRESENT: normal capillary refill GI/Abdominal exam: PRESENT: normal bowel sounds, soft Rectal exam: PRESENT: deferred Neurological exam: PRESENT: alert, CN II-XII grossly intact Skin exam: PRESENT: dry, intact, warm Results Laboratory Results: 12/23/18 06:27 12/23/18 06:27 12/22/18 12/22/18 12/23/18 18:20 20:13 06:27 WBC 7.1 RBC 3.75 Hgb 9.3 L Hct 29.1 L MCV 78 L MCH 24.9 L MCHC 32.0 RDW 21.0 H Plt Count 223 Seg Neutrophils % 47.1 Lymphocytes % 38.8 Monocytes % 10.3 Eosinophils % 2.9 Basophils % 0.9 Absolute Neutrophils 3.3 Absolute Lymphocytes 2.8 Absolute Monocytes 0.7 Absolute Eosinophils 0.2 Absolute Basophils 0.1 Sodium 141.0 Potassium 5.4 H Chloride 112 H Carbon Dioxide 22 Anion Gap 7 BUN 33 H Creatinine 1.85 H Est GFR ( Amer) 32 L Est GFR (Non-Af Amer) 27 L Glucose 106 Calcium 10.4 H Total Bilirubin AST ALT Alkaline Phosphatase Total Protein Albumin PTH Intact 132.2 H 12/23/18 06:27 WBC RBC Hgb Hct MCV MCH MCHC RDW Plt Count Seg Neutrophils % Lymphocytes % Monocytes % Eosinophils % Basophils % Absolute Neutrophils Absolute Lymphocytes Absolute Monocytes Absolute Eosinophils Absolute Basophils Sodium 142.8 Potassium 4.5 Chloride 111 H Carbon Dioxide 22 Anion Gap 10 BUN 29 H Creatinine 1.79 H Est GFR ( Amer) 33 L Est GFR (Non-Af Amer) 28 L Glucose 94 Calcium 10.3 H Total Bilirubin 0.2 AST 31 ALT 14 Alkaline Phosphatase 54 Total Protein 7.5 Albumin 4.1 PTH Intact 12/21/18 12/21/18 12/21/18 15:35 15:35 15:35 Creatine Kinase 41 CK-MB (CK-2) 0.27 Troponin I < 0.012 NT-Pro-B Natriuret Pep 426 12/21/18 12/21/18 12/22/18 21:05 21:05 03:28 Creatine Kinase 45 44 CK-MB (CK-2) 0.37 Troponin I < 0.012 NT-Pro-B Natriuret Pep 12/22/18 03:28 Creatine Kinase CK-MB (CK-2) 0.28 Troponin I < 0.012 NT-Pro-B Natriuret Pep Impressions: Renal Ultrasound 12/21/18 00:00 IMPRESSION: Findings consistent chronic medical renal disease. Qualifiers - * PATIENT BEING DISCHARGED WITH ANY OF THE FOLLOWING DIAGNOSIS: No Plan Discharge Plan: Patient's family wants her discharge home today, she was discharged home today,to follow up in the office
[2018-12-25 16:39] LABS: ALBUMIN UR 74.6 % (.); ALPHA-1-GLOBULIN URINE 1.5 % (.); ALPHA-2-GLOBULIN URINE 3.8 % (.); GAMMA GLOBULIN URINE 10.5 % (.); M-SPIKE % UR Not Observed % (Not Observ); PROTEIN TOTAL URINE 91.1 mg/dL (Not Estab.)
[2018-12-25 16:39] LABS: ALBUMIN 3 3.4 g/dL (2.9-4.4); ALPHA-1-GLOBULIN 0.2 g/dL (0.0-0.4); GAMMA GLOBULINS 1.6 g/dL (0.4-1.8); IMMUNOGLOBULIN A 240 mg/dL (64-422); IMMUNOGLOBULIN G 1532 mg/dL (700-1600); IMMUNOGLOBULIN M 141 mg/dL (26-217); MONOCLONAL-SPIKE Not Observed g/dL (Not Observ); PROTEIN TOTAL SERUM 6.9 g/dL (6.0-8.5)
== END 2018-12-23 10:39 | disposition home or self-care (01) | DRG 684 ==
LOC: ER 12:52 → EH 14:19 → 3W 12-22 02:21
PROVIDERS: ADMIT Internal Medicine; ATTEND Internal Medicine
DX: N17.9 Acute kidney failure, unspecified (principal); E87.5 Hyperkalemia; N18.9 Chronic kidney disease, unspecified; E11.22 Type 2 diabetes mellitus with diabetic chronic kidney disease; E11.42 Type 2 diabetes mellitus with diabetic polyneuropathy; D50.0 Iron deficiency anemia secondary to blood loss (chronic); I12.9 Hypertensive chronic kidney disease with stage 1 through stage 4 chronic kidney disease, or unspecified chronic kidney disease; N25.81 Secondary hyperparathyroidism of renal origin; F03.90 Unspecified dementia, unspecified severity, without behavioral disturbance, psychotic disturbance, mood disturbance, and anxiety; Z79.84 Long term (current) use of oral hypoglycemic drugs; Z79.899 Other long term (current) drug therapy; Z91.19 Patient's noncompliance with other medical treatment and regimen
CPT/HCPCS: 36415; 76770; 80048; 80053; 80307; 82140; 82150; 82550; 82553; 82570; 82607; 82728; 82746; 82803; 82962; 83036; 83540; 83550; 83690; 83735; 83880; 83970; 84100; 84156; 84165; 84166; 84439; 84443; 84484; 85025; 85045; 85610; 85730; 86320; 87086; 93005; 93010; 96374; 96375; 99291; J0610; J1756; J1815; J1940; J3490; J7030

== ENCOUNTER → 2019-05-26 | Outpatient (CLI) | payer MEDICARE ==
[2019-05-26 11:17] LABS: ABSOLUTE EOSINOPHILS # (AUTO) 0.2 10^3/uL (0.0-0.6); ABSOLUTE LYMPHOCYTES (AUTO) 1.5 10^3/uL (0.5-4.7); ABSOLUTE MONOCYTES (AUTO) 0.3 10^3/uL (0.1-1.4); ABSOLUTE NEUT (AUTO) 2.8 10^3/uL (1.7-8.2); BASOPHILS % (AUTO) 0.8 % (0-2); EOSINOPHILS % (AUTO) 4.9 % (0-6); HEMOGLOBIN 10.1 g/dL (12.0-15.5); LYMPHOCYTES % (AUTO) 30.7 % (13-45); MEAN CORPUSCULAR HEMOGLOBIN 26.2 pg (27.0-33.4); MEAN CORPUSCULAR HGB CONC 31.4 g/dL (32.0-36.0); MEAN CORPUSCULAR VOLUME 83 fl (80-97); MONOCYTES % (AUTO) 5.7 % (3-13); PLATELET COUNT 158 10^3/uL (150-450); RED BLOOD COUNT 3.84 10^6/uL (3.72-5.28); RED CELL DISTRIBUTION WIDTH 18.2 % (11.5-14.0); SEGMENTED NEUTROPHILS % (AUTO) 57.9 % (42-78); TOTAL CELLS COUNTED % (AUTO) 100 %; WHITE BLOOD COUNT 4.9 10^3/uL (4.0-10.5)
[2019-05-26 11:41] LABS: ALANINE AMINOTRANSFERASE 14 U/L (9-52); ALBUMIN 4.1 g/dL (3.5-5.0); ALKALINE PHOSPHATASE 38 U/L (38-126); ANION GAP 9 (5-19); ASPARTATE AMINO TRANSFERASE 21 U/L (14-36); BILIRUBIN,DIRECT 0.4 mg/dL (0.0-0.4); BILIRUBIN,TOTAL 0.4 mg/dL (0.2-1.3); BLOOD UREA NITROGEN 46 mg/dL (7-20); CARBON DIOXIDE 22 mmol/L (22-30); CHLORIDE 113 mmol/L (98-107); GLUCOSE 114 mg/dL (75-110); IRON(TIBC) 80.8 ug/dL (37-170); PHOSPHORUS 3.8 mg/dL (2.5-4.5); POTASSIUM 5.4 mmol/L (3.6-5.0); SODIUM 144.1 mmol/L (137-145); TOTAL PROTEIN 7.7 g/dL (6.3-8.2)
[2019-05-26 13:09] LABS: CALCIUM 12.5 mg/dL (8.4-10.2)
[2019-05-27 15:36] LABS: ALBUMIN 2 3.7 g/dL (2.9-4.4); ALPHA-2-GLOBULIN 2 0.9 g/dL (0.4-1.0); BETA GLOBULINS 1.1 g/dL (0.7-1.3); GAMMA GLOBULIN 1.6 g/dL (0.4-1.8); GLOBULIN TOTAL 3.8 g/dL (2.2-3.9); MONOCLONAL SPIKE Not Observed g/dL (Not Observ); PROTEIN TOTAL SERUM 7.5 g/dL (6.0-8.5)
== END ==
LOC: OD 10:28
PROVIDERS: ATTEND Internal Medicine Nephrology
DX: I12.9 Hypertensive chronic kidney disease with stage 1 through stage 4 chronic kidney disease, or unspecified chronic kidney disease (principal); N18.4 Chronic kidney disease, stage 4 (severe); E11.22 Type 2 diabetes mellitus with diabetic chronic kidney disease; D63.1 Anemia in chronic kidney disease
CPT/HCPCS: 36415; 80053; 83540; 83550; 83735; 83970; 84100; 84165; 84443; 85025